=== PATIENT | male | born 1955 | race Caucasian/White ===

== ENCOUNTER 2021-03-02 12:19 | Outpatient (REF) | payer BC, SELFPAY | END 2021-03-02 12:20 | disposition home or self-care (01) | LOC: HO.HMGCLDS 12:19 | PROVIDERS: Visit Provider Internal Medicine | DX: Z20.822 Contact with and (suspected) exposure to COVID-19 (principal) | CPT/HCPCS: C9803; U0003; U0005 ==

== ENCOUNTER 2021-03-16 09:40 | Emergency (ER) | payer BC, SELFPAY | END 2021-03-16 09:57 | disposition left against medical advice (07) | LOC: HO.ED 09:58 | PROVIDERS: Emergency Provider Emergency Medicine; PCP Psychologist Prescribing (Medical) | DX: R68.89 Other general symptoms and signs (principal) ==

== ENCOUNTER 2021-03-19 15:16 | Outpatient (REF) | payer BC, SELFPAY | END 2021-03-19 15:17 | disposition home or self-care (01) | LOC: HO.LNP 15:16 | PROVIDERS: Visit Provider Internal Medicine | DX: Z20.822 Contact with and (suspected) exposure to COVID-19 (principal); J06.9 Acute upper respiratory infection, unspecified | CPT/HCPCS: U0003; U0005 ==

== ENCOUNTER 2021-05-23 09:58 | Outpatient (REF) | payer BC, SELFPAY ==
[2021-05-23 11:38] LABS: Mean Corpuscular HGB Conc 28.3 g/dl (31.0-36.0); Mean Corpuscular Hemoglobin 21.4 pg (27.0-33.0); Mean Corpuscular Volume 75.7 fL (80.0-98.0); Mean Platelet Volume 10.3 fL (9.4-12.4); Platelet Count 437 X10*3/uL (160-400); Red Blood Count 3.04 X10*6/uL (4.60-5.80); Red Cell Distribution Width 15.8 % (11.0-16.0); White Blood Count 8.3 X10*3/uL (4.8-10.8)
[2021-05-23 11:48] LABS: Hemoglobin 6.5 g/dl (14.0-18.0)
[2021-05-23 11:59] LABS: Alanine Aminotransferase 13 U/L (0-40); Alkaline Phosphatase 58 U/L (39-117); Anion Gap 12 (12-20); Aspartate Amino Transferase 11 U/L (5-37); Bilirubin Direct < 0.2 mg/dL (0.0-0.5); Bilirubin Total 0.4 mg/dL (0.0-1.0); Blood Urea Nitrogen 20 mg/dL (9-16); Carbon Dioxide 24 mmol/L (22-29); Chloride 110 mmol/L (96-108); Estimated Glomerular Filt Rate > 60; Glucose Random 85 mg/dL (60-115); Potassium 4.7 mmol/L (3.3-5.1); Sodium 141 mmol/L (135-145); Total Protein 6.6 g/dL (6.5-8.0)
[2021-05-23 12:32] LABS: Erythrocyte Sedimentation Rate 10 MM/HR (0-15)
[2021-05-23 12:36] LABS: Influenza A PCR NEGATIVE (Negative); Influenza B PCR NEGATIVE (Negative); Resp Syncy Virus RNA Qual PCR NEGATIVE (Negative); SARS COV2 PCR INHOUSE POSITIVE (Negative)
== END 2021-05-23 09:59 | disposition home or self-care (01) ==
LOC: HO.HMGCLDS 09:58
PROVIDERS: PCP Internal Medicine; Visit Provider Internal Medicine
DX: Z20.822 Contact with and (suspected) exposure to COVID-19 (principal); R42 Dizziness and giddiness; R43.9 Unspecified disturbances of smell and taste
CPT/HCPCS: 0241U; 36415; 80048; 80076; 85027; 85652

== ENCOUNTER 2021-05-23 14:06 | Emergency (ER) | payer BC, SELFPAY ==
[2021-05-23] VITALS (7 sets, daily range): BP systolic 111–149; BP diastolic 56–90; PULSE 70–83; RESP 18–20; TEMP 36.5–37; O2SAT 97–100; BMI 28.5
--- NOTE | 2021-05-23 18:44 | ED.GENADULT ---
HPI - General Adult General Chief complaint: General Medical Stated complaint: Blood Transfusion COVID + Time Seen by Provider: 05/23/21 14:22 Source: patient Mode of arrival: ambulatory Limitations: no limitations History of Present Illness HPI narrative: Patient comes to the emergency room complaining of lightheadedness. Patient states that it started approximately 3 days ago, noticed that when he stands up he feels lightheaded. Patient has been feeling very fatigued, low energy. Patient had blood test today at his primary care physician's office, patient receive a phone call let him know that his hemoglobin was low and likely would need a blood transfusion. Patient states that approximately 8 years ago he was diagnosed with a GI bleed. Patient states that he needed for units of blood. Patient states that after he was discharged from the hospital he had a colonoscopy, he was told that he had intermittent bleeding but at the time of the colonoscopy did not find much. Patient denies being on blood thinners. Patient states that to his knowledge he has not had black stool or bright red blood per rectum. Of note, patient was told today that he tested positive for COVID-19. Patient states this is the 2nd time that he tests positive for COVID, the 1st time being in February of this year. Patient states that after the previous episode he tested negative for COVID Related Data Home Medications Medication Instructions Recorded Confirmed albuterol sulfate 90 mcg/actuation INHALATION 10/14/20 aerosol inhaler dextroamphetamine-amphetamine 15 1 tab PO BID 10/14/20 mg tablet ergocalciferol (vitamin D2) 1,250 1,250 mcg PO QWEEK 10/14/20 mcg (50,000 unit) capsule fluoxetine 20 mg capsule 20 mg PO DAILY 10/14/20 Previous Rx's Medication Instructions Recorded triamcinolone acetonide 0.025 % 1 appl TOPICAL BID #15 g 03/19/21 topical cream meclizine 25 mg tablet 25 mg PO DAILY #14 tab 05/23/21 Allergies Allergy/AdvReac Type Severity Reaction Status Date / Time No Known Allergies Allergy Verified 05/23/21 08:58 Review of Systems Review of Systems: Constitutional : No Weight loss, No Fever, No Chills, No Night Sweats, complaining of fatigue, weakness ENT/Mouth : No Hearing loss, No Ear Pain, No Nasal Congestion, No Sinus Pain, No Hoarseness, No sore throat, No Rhinorrhea, No Swallowing Difficulty Eyes: No Eye Pain, No Swelling, No Redness, No Foreign Body, No Discharge, No Vision Changes Cardiovascular : No Chest Pain, No SOB, No Dyspnea on Exertion, No Orthopnea, No Edema, No Palpitations Respiratory : No Cough, No Sputum, No Wheezing, No Smoke Exposure, No Dyspnea Gastrointestinal : No Nausea, No Vomiting, No Diarrhea, No Constipation, No abdominal Pain, No Hematochezia, No Melena Genitourinary : no irregular bleeding, No Dysuria, No Urinary Frequency, No Hematuria, No Urinary Incontinence, No Urgency, No Flank Pain, No Urinary Flow Changes, No Hesitancy Musculoskeletal : No joint pain, No Myalgias, No Joint Swelling Skin : No Skin Lesions, No rash Neuro : No Weakness, No Numbness, No Paresthesias, No Loss of Consciousness, complaining of dizziness /lightheaded when standing , No Headache Psych : No Anxiety/Panic, No Depression, No SI/HI/AH/VH, No Social Issues, Heme/Lymph: No Bruising, No Bleeding,No Lymphadenopathy Endocrine : No Polyuria, No Polydipsia, No Temperature Intolerance [facility] Past Medical History Medical History COVID-19 Social History Social History Patient Tobacco Use Status: Never used Tobacco Advance Directives: No Advance Directives Information Provided: Yes Physical Exam Vital Signs: Vital Signs: Last Vital Signs Temp 98.6 F 05/23/21 20:54 Pulse 74 05/23/21 20:54 Resp 20 05/23/21 20:54 BP 129/90 H 05/23/21 20:54 Pulse Ox 100 05/23/21 20:17 BMI result Body Mass Index 28.5 Const: Other: Appearance: Alert. Oriented X3. No acute distress. Eyes: Pupils equal, round and reactive to light. ENT: Pharynx normal. Neck: Normal inspection. Neck supple. No lymph nodes noted. No crepitus CVS: Normal heart rate and rhythm. Pulses normal. Normal S1 and S2 Respiratory: No respiratory distress. Breath sounds normal. No Wheezing. No rales Abdomen: Soft and nontender. No rigidity. No distention. SAHRA shows dark brown stool Skin: Skin warm and dry. Pale Extremities: No lower extremity edema. No lower extremity edema. No Lacerations. No Rash Neuro: Oriented X 3. No motor deficit. No sensory deficit. Moving all extermities. No slurred speech. Course Course Course Narrative: I discussed with the patient that based on his labs and symptoms he would benefit from a blood transfusion. Patient is agreeable. Patient has had blood transfusions in the past and has tolerated blood transfusions well. Consent was signed, in patient's chart. I discussed the patient with Dr. Mcwilliams, patient being admitted. Per patient, last time that he had an occult GI bleed, he required 4 units of packed red blood cells. I spoke with Dr. Mcwilliams to get the patient admitted. However, we consulted Gastroenterology. At this time patient does not have an active GI bleed plus he is COVID positive. Dr. Brown recommends that the patient gets transfused and then sent home, recover from COVID-19, then they can do the colonoscopy. I discussed the above-mentioned with the patient and he agrees with the plan. At this time, patient is senior living through the 1st unit. Patient will need 1 more afterwards. Sign-out given to Dr. Snow Medical Decision Making Lab Data Result diagrams: 05/23/21 19:53 Labs: Lab Results 05/23/21 05/23/21 05/23/21 Range/Units 18:52 19:53 19:53 Hgb 6.3 L* (14.0-18.0) g/dl Hct 21.9 L (42.0-52.0) % Stool Occult Blood POSITIVE (NEGATIVE) Blood Type B Positive Antibody Screen NEGATIVE Crossmatch See Detail Discharge Plan Discharge Clinical Impression: GI bleed, Anemia Patient Disposition: Home, Self-Care Instructions: Anemia (ED), Gastrointestinal Bleeding (ED) Additional Instructions: Please follow-up with your primary care physician tomorrow. When you recover from COVID-19, you will need an endoscopy. Please call your pain management nurse. you have any worsening or new symptoms, please return to the emergency room or call 911 Prescriptions: No Action fluoxetine 20 mg capsule 20 mg PO DAILY RF: 0 dextroamphetamine-amphetamine 15 mg tablet 1 tab PO BID RF: 0 ergocalciferol (vitamin D2) 1,250 mcg (50,000 unit) capsule 1,250 mcg PO QWEEK RF: 0 albuterol sulfate 90 mcg/actuation HFA aerosol inhaler inhalation RF: 0 meclizine 25 mg tablet 25 mg PO DAILY Qty: 14 RF: 0 triamcinolone acetonide 0.025 % cream 1 appl topical BID Qty: 15 RF: 0 Referrals: Reyes Brown MD [Physician] - 2 days
[2021-05-23 18:59] LABS: OBS Int Ctl Valid YES; OBS1 POSITIVE (NEGATIVE)
[2021-05-23 20:00] LABS: Hematocrit 21.9 % (42.0-52.0)
[2021-05-23 20:14] LABS: Hemoglobin 6.3 g/dl (14.0-18.0)
--- NOTE | 2021-05-23 23:29 | PC.NURSE ---
pt a&o, no sob or chest pain, pt tolerated first unit rbc well. Second unit started. Unable to document end vitals due to blood bank having it collected. Was able to call blood bank and get it resolved.
--- NOTE | 2021-05-24 00:48 | PC.NURSE ---
pt pulled Iv line himself and walk out. Unable to complete last set of vitals to complete blood transfusion. Charge nurse and cage supervisor aware. Reviewed unit of blood, second unit of blood was transfused completely.
--- NOTE | 2021-05-24 01:05 | PC.NURSE ---
blood transfusion had just completed. When notified and went to complete tar. pt eloped and pull out iv himself. Notified provider, charge nurse and traffic sign supervisor. Second unit was completed at the time of elopement.
== END 2021-05-24 01:07 | disposition left against medical advice (07) ==
PROVIDERS: Emergency Provider Emergency Medicine; PCP Internal Medicine
DX: D64.9 Anemia, unspecified (principal); K92.2 Gastrointestinal hemorrhage, unspecified; U07.1 COVID-19
CPT/HCPCS: 36415; 51798; 82272; 85014; 85018; 86850; 86900; 86901; 86923; 99284; 99285; P9016

== ENCOUNTER 2021-06-02 14:01 | Outpatient (REF) | payer BC, SELFPAY ==
[2021-06-02 16:36] LABS: Hematocrit 25.3 % (42.0-52.0); Hemoglobin 7.2 g/dl (14.0-18.0); Mean Corpuscular HGB Conc 28.5 g/dl (31.0-36.0); Mean Corpuscular Hemoglobin 22.4 pg (27.0-33.0); Mean Corpuscular Volume 78.6 fL (80.0-98.0); Mean Platelet Volume 10.6 fL (9.4-12.4); Platelet Count 417 X10*3/uL (160-400); Red Blood Count 3.22 X10*6/uL (4.60-5.80); Red Cell Distribution Width 17.7 % (11.0-16.0)
[2021-06-02 16:40] LABS: Appearance Urine CLEAR; Color Urine YELLOW; Glucose Urine UA 500 MG/DL (NEG); Leukocyte Esterase Urine NEG (NEG); Nitrite Urine NEG (NEG); PH 5.5 (5.0-8.0); Specific Gravity - Urine >= 1.030 (1.005-1.025); Urine Blood NEG (NEG); Urine Ketones NEG (NEG); Urine Protein NEG (NEG-TRACE)
[2021-06-02 16:53] LABS: Alanine Aminotransferase 13 U/L (0-40); Albumin Level 3.9 g/dL (3.5-5.0); Alkaline Phosphatase 62 U/L (39-117); Aspartate Amino Transferase 12 U/L (5-37); Bilirubin Direct < 0.2 mg/dL (0.0-0.5); Bilirubin Total 0.3 mg/dL (0.0-1.0); Cholesterol 160 mg/dL; HDL Cholesterol 44 mg/dL; LDL Cholesterol Calculated 91 mg/dl; Total Protein 6.4 g/dL (6.5-8.0); Triglycerides 126 mg/dL
[2021-06-02 18:04] LABS: Erythrocyte Sedimentation Rate 11 MM/HR (0-15)
== END 2021-06-02 14:02 | disposition home or self-care (01) ==
LOC: HO.HMGCLDS 14:01
PROVIDERS: PCP Internal Medicine; Visit Provider Internal Medicine
DX: D64.9 Anemia, unspecified (principal)
CPT/HCPCS: 36415; 80061; 80076; 81003; 85027; 85652

== ENCOUNTER 2021-06-06 13:53 | Outpatient (REF) | payer BC, SELFPAY ==
[2021-06-06 14:48] LABS: MANUAL DIFF FLAG NO
[2021-06-06 15:18] LABS: Basophils Percent Auto 0.2 % (0-2); Eosinophils Percent Auto 0.3 % (0-4); Hematocrit 26.1 % (42.0-52.0); Hemoglobin 7.7 g/dl (14.0-18.0); Imm Gran Abs Auto 0.03 X10*3/uL (0.00-0.03); Imm Gran Pct Auto 0.5 % (0.0-0.4); Lymphocytes Absolute Auto 0.7 X10*3/uL (1.2-4.9); Lymphocytes Percent Auto 10.1 % (20-40); Mean Corpuscular HGB Conc 29.5 g/dl (31.0-36.0); Mean Corpuscular Hemoglobin 22.3 pg (27.0-33.0); Mean Corpuscular Volume 75.7 fL (80.0-98.0); Monocytes Absolute Auto 0.5 X10*3/uL (0.1-1.2); Monocytes Percent Auto 8.1 % (2-11); Neutrophils Absolute Auto 5.3 x10*3/uL (2.0-8.3); Neutrophils Percent Auto 80.8 % (45-73); Platelet Count 487 X10*3/uL (160-400); Red Blood Count 3.45 X10*6/uL (4.60-5.80); Red Cell Distribution Width 17.4 % (11.0-16.0); White Blood Count 6.6 X10*3/uL (4.8-10.8)
[2021-06-06 15:40] LABS: Alanine Aminotransferase 19 U/L (0-40); Albumin Level 4.1 g/dL (3.5-5.0); Alkaline Phosphatase 69 U/L (39-117); Anion Gap 11 (12-20); Aspartate Amino Transferase 15 U/L (5-37); Bilirubin Total 0.4 mg/dL (0.0-1.0); Blood Urea Nitrogen 17 mg/dL (9-16); Carbon Dioxide 26 mmol/L (22-29); Chloride 107 mmol/L (96-108); Estimated Glomerular Filt Rate 58; Glucose Random 116 mg/dL (60-115); Lactate Dehydrogenase 148 U/L (118-273); Potassium 4.5 mmol/L (3.3-5.1); Sodium 139 mmol/L (135-145); Total Protein 6.9 g/dL (6.5-8.0)
[2021-06-06 16:00] LABS: Ferritin 5 ng/mL (20-250)
[2021-06-06 16:13] LABS: Folate > 20.0 ng/mL (> or = 4.0); Vitamin B12 540 pg/mL (200-900)
[2021-06-07 11:31] LABS: Haptoglobin 104 mg/dL (43-212)
== END 2021-06-06 13:54 | disposition home or self-care (01) ==
LOC: HO.LAB 13:53
PROVIDERS: PCP Internal Medicine; Referring Provider Internal Medicine; Visit Provider Internal Medicine Gastroenterology
DX: D64.9 Anemia, unspecified (principal); K75.81 Nonalcoholic steatohepatitis (NASH)
CPT/HCPCS: 36415; 80053; 82607; 82728; 82746; 83010; 83615; 85025; 86850; 86900; 86901

== ENCOUNTER 2021-06-09 10:45 | Day surgery (SDC) | payer BC, SELFPAY ==
[2021-06-09 12:45] VITALS: BMI 28.5
[2021-06-09 12:59] VITALS: BP 139/74; PULSE 72; RESP 16; TEMP 37.1; O2SAT 97
--- NOTE | 2021-06-09 13:04 | MHC.SHP ---
Pre-Procedural Eval Section A Date of Service: 06/09/21 The patient is an INPATIENT: No The History & Physical has been completed within 30 days and I have reviewed it.: Yes Section B Chief Complaint: anemia Allergies: Allergies Allergy/AdvReac Type Severity Reaction Status Date / Time No Known Allergies Allergy Verified 06/09/21 12:41 Plan Diagnosis/Plan: Unchanged I have reviewed the history and physical and performed a pertinent physical examination on my patient. No changes have occurred unless specified.
--- NOTE | 2021-06-09 13:06 | P.BOP_ITS ---
Brief Operative Note Date of Service: 06/09/21 Pre-op diagnosis: anemia Post-op diagnosis: same Procedure: see op note Surgeon: Kim Jade MD Anesthesia: MAC Was an Speech Language Therapist used for this Procedure?: No Estimated blood loss (mL): 0 Condition: stable Disposition: PACU
--- NOTE | 2021-06-09 13:06 | W.PM.OPN ---
Operative Note Operative Note Date of Service: 06/09/21 Narrative: Procedure Description: EGD FLEXIBLE TRANSORAL UPPER GASTROINTESTINAL ENDOSCOPY UPPER ENDOSCOPY Consent: Indications for the procedure and potential complications of bleeding, perforation, reaction to medications and missed diagnosis were discussed with the patient and informed consent was obtained. Instrument: Olympus GIF H 190 J mid size upper endoscope Monitoring: Vital signs and clinical assessment, continuous EKG monitoring, Pulse oximetry, Carbon Dioxide monitoring and blood pressure monitoring were done throughout the procedure. Procedure: The patient was placed in the left lateral decubitis position and pre-procedure medications were administered and a bite block was placed. The endoscope was inserted into the mouth and advanced under direct vision to the third part of duodenum. A careful inspection was made as the upper endoscope was withdrawn including a retroflexed examination of the proximal stomach; Findings and interventions are described below. Findings: Larynx:normal Esophagus: GE junction at 35 cm, diaphragm hiatus at 42 cm, LA Grade A esophagitis noted, with tight appearing GEJ. This was stretched with balloon from 18-19.5 mm with small tear and heme noted. within the hernial sac there were erosions and streaky linear areas of erythema consistent with Kolby erosions. Stomach: Patchy gastric erythema with multiple non bleeding erosions at the distal body and antrum. Biopsies were obtained. Grade 2 flap valve on retroflexed examination of the cardia with 7 cm paraesophageal hernia noted. Duodenum: moderate duodenitis noted, no ulcers seen with distal attachment Intervention: Biopsies as noted above, balloon dilation Impression/Findings: erosive gastritis duodenitis para esophageal hernia esophagitis esophageal stricture kolby erosions, PLAN: Reflux precautions High dose PPI and sucralfate avoid nsaids refer for hernia repair if he agrees still recommend colonoscopy in near future if he agrees
--- NOTE | 2021-06-09 14:20 | HO.ANESPROP2 ---
HPI - Anesthesia Eval Consult details Narrative: 65 M for EGD asthma PMFSH Active Problems Active Problems: All Active Problems (Updated 06/09/21 @ 12:45 by Rehana Montero, RN) Wound dehiscence (Acute) Screening examination for infectious disease (Acute) Vertigo (Acute) Anemia (Acute) Past Medical History Medical History (Updated 06/09/21 @ 12:45 by Rehana Montero RN) ADD (attention deficit disorder) Asthma COVID-19 Depression Iron deficiency anemia Family History Family history of problems with anesthesia: No Surgical History Surgical History (Updated 06/09/21 @ 12:41 by Rehana Montero RN) History of total hip arthroplasty Hx of colonoscopy Hx of esophagogastroduodenoscopy Hx of eye surgery Hx of tonsillectomy History of Problems with Anesthesia: No Social History Social History Patient Tobacco Use Status: Never used Tobacco Meds Allergies Allergy/AdvReac Type Severity Reaction Status Date / Time No Known Allergies Allergy Verified 06/09/21 12:41 Home Medications Medication Instructions Recorded Confirmed Last Taken Type albuterol sulfate 90 mcg/actuation INHALATION 10/14/20 Unknown History aerosol inhaler dextroamphetamine-amphetamine 15 1 tab PO BID 10/14/20 06/09/21 06:00 History mg tablet ergocalciferol (vitamin D2) 1,250 1,250 mcg PO QWEEK 10/14/20 Unknown History mcg (50,000 unit) capsule fluoxetine 20 mg capsule 20 mg PO DAILY 10/14/20 06/09/21 06:00 History Exam Exam Date and Time: June 09, 2021 1420 Height,Weight and Vital Signs: Height 5 ft 11 in Weight 92.986 kg Last Vital Signs Temp 98.7 F 06/09/21 12:59 Pulse 72 06/09/21 12:59 Resp 16 06/09/21 12:59 BP 139/74 06/09/21 12:59 Pulse Ox 97 06/09/21 12:59 Airway Mallampati Class: II TM Dist: >3cm Neck ROM: Full Loose/Missing/Broken Teeth: Yes (Chipped , fillings ) Heart: rrr Lungs: bl breath sounds Assessment and Plan Assessment Anesthesia Assessment: Anesthesia Plan Discussed Final Anesthetic Review Family History of Problems with Anesthesia: No History of Problems with Anesthesia: No NPO: Yes ASA Class: II Final Preanesthetic Review: Anes Risks/Benef Reviewed Patient Risk: Intermediate Procedure Risk: Intermediate Anesthetic Plan Anesthetic Plan: MAC: Disposition: Standard PACU
[2021-06-09 14:55] VITALS: BP 139/84; PULSE 82; RESP 16; TEMP 36.6; O2SAT 98
[2021-06-09 15:10] VITALS: BP 139/89; PULSE 77; RESP 16; TEMP 36.6; O2SAT 96
== END 2021-06-09 15:34 ==
LOC: HO.SSS 10:46
PROVIDERS: PCP Internal Medicine; Visit Provider Internal Medicine Gastroenterology
PROC: 0DJ08ZZ Inspection of Upper Intestinal Tract, Via Natural or Artificial Opening Endoscopic (ICD-10-PCS; CPT 43235; principal; 2021-06-09 14:10)
DX: D64.9 Anemia, unspecified (principal); K22.2 Esophageal obstruction; K29.50 Unspecified chronic gastritis without bleeding; K20.80 Other esophagitis without bleeding; K29.80 Duodenitis without bleeding; K44.9 Diaphragmatic hernia without obstruction or gangrene; K75.81 Nonalcoholic steatohepatitis (NASH); J45.909 Unspecified asthma, uncomplicated; Z96.641 Presence of right artificial hip joint; Z86.16 Personal history of COVID-19
CPT/HCPCS: 43249; 43239; 88305; 88342; C1726

== ENCOUNTER 2021-06-09 10:49 | Outpatient (REF) | payer BC, SELFPAY | END 2021-06-09 10:50 | disposition home or self-care (01) | LOC: HO.MDS 10:49 | PROVIDERS: PCP Internal Medicine; Visit Provider Internal Medicine Gastroenterology | DX: D50.9 Iron deficiency anemia, unspecified (principal) | CPT/HCPCS: 96365; J2916 ==

== ENCOUNTER 2021-06-17 11:42 | Outpatient (REF) | payer BC, SELFPAY | END 2021-06-17 11:43 | disposition home or self-care (01) | LOC: HO.MDS 11:42 | PROVIDERS: PCP Internal Medicine; Visit Provider Internal Medicine Gastroenterology | DX: D50.9 Iron deficiency anemia, unspecified (principal) | CPT/HCPCS: 96365; J2916 ==

== ENCOUNTER 2021-06-28 12:01 | Outpatient (REF) | payer BC, SELFPAY | END 2021-06-28 12:02 | disposition home or self-care (01) | LOC: HO.MDS 12:01 | PROVIDERS: PCP Internal Medicine; Visit Provider Internal Medicine Gastroenterology | DX: D50.9 Iron deficiency anemia, unspecified (principal) | CPT/HCPCS: 96365; J2916 ==

== ENCOUNTER 2021-06-29 08:04 | Outpatient (REF) | payer BC, SELFPAY ==
--- NOTE | ~2021-06-29 | CT_ITS ---
EXAMINATION: CT ABDOMEN AND PELVIS WITH CONTRAST CLINICAL INFORMATION: Anemia. COMPARISON: None TECHNIQUE: Multidetector volumetric images were obtained from the superior aspect of the liver through the pubic symphysis following administration 85 mL of Omnipaque 350 intravenous contrast. Sagittal and coronal reformatted images were obtained on the technologist's workstation. Oral contrast: No This CT examination was performed using dose optimization techniques as appropriate, variously including the following: *Automated exposure control *Adjustment of mA and/or kV according to patient size (this includes techniques or standardized protocols for targeted exams where dose is matched to indication/reason for exam; i.e. extremities or head) *Use of iterative reconstruction technique DLP: 711 mGy-cm FINDINGS: LUNG BASES: Lung bases are expanded and clear. The heart size is normal. There is moderate-sized hiatal hernia. LIVER, GALLBLADDER, AND BILIARY TREE: The liver is normal in size, shape, and attenuation. No focal hepatic lesion or biliary ductal dilatation is present. The gallbladder is unremarkable with no evidence of radiopaque gallstones, gallbladder wall thickening, or obvious pericholecystic inflammatory changes. PANCREAS: Unremarkable. SPLEEN: Unremarkable. ADRENAL GLANDS: Unremarkable. KIDNEYS AND URETERS: The kidneys are normal in size, shape, and attenuation. No hydronephrosis, hydroureter, or calculi seen. No perinephric stranding. BLADDER: Unremarkable. GASTROINTESTINAL TRACT: There is scattered diverticula seen throughout the colon without distention. The small bowel loops are normal caliber. Appendix is normal caliber. No inflammatory process of free fluid. ABDOMINAL WALL: A small umbilical hernia containing fat is noted. LYMPH NODES: Normal. VASCULAR: Unremarkable. PELVIC VISCERA: Unremarkable. OSSEOUS STRUCTURES: There is a total right hip prosthesis. No gross bony abnormality seen except for mild ventral and posterior spondylosis lower dorsal spine. CT/CT abdomen pelvis w con IMPRESSION: No acute intra-abdominal process seen. Moderate size hiatal hernia. Mild constipation. Fleischner guidelines were followed.
[2021-06-29] MEDS: iohexoL 350 MG/ML 100 ML INFUS..BTL IV (08:49)
== END 2021-06-29 08:05 | disposition home or self-care (01) ==
LOC: HO.CT 08:04
PROVIDERS: PCP Internal Medicine; Visit Provider Internal Medicine
DX: D64.9 Anemia, unspecified (principal)
CPT/HCPCS: 74177; Q9967

== ENCOUNTER → 2021-07-08 10:09 | Outpatient (BNVA) | payer BC, SELFPAY | PROVIDERS: PCP Internal Medicine; Visit Provider Surgery | DX: K44.0 Diaphragmatic hernia with obstruction, without gangrene (principal); K21.9 Gastro-esophageal reflux disease without esophagitis; R13.10 Dysphagia, unspecified; D64.9 Anemia, unspecified; Z79.899 Other long term (current) drug therapy | CPT/HCPCS: 99212 ==

== ENCOUNTER 2021-07-16 12:37 | Observation (INO) | payer BC, SELFPAY ==
[2021-07-16] VITALS (11 sets, daily range): BP systolic 132–161; BP diastolic 60–88; PULSE 68–94; RESP 12–19; TEMP 36.7–37.2; O2SAT 97–98; BMI 28.5
--- NOTE | ~2021-07-16 | CT_ITS ---
EXAMINATION: CT ABDOMEN AND PELVIS WITH CONTRAST CLINICAL INFORMATION: GI bleed COMPARISON: Previous CT of the abdomen and pelvis 06/29/2021 TECHNIQUE: Multidetector volumetric images were obtained from the superior aspect of the liver through the pubic symphysis following administration 85 mL of Omnipaque 350 intravenous contrast. Sagittal and coronal reformatted images were obtained on the technologist's workstation. Oral contrast: Yes This CT examination was performed using dose optimization techniques as appropriate, variously including the following: *Automated exposure control *Adjustment of mA and/or kV according to patient size (this includes techniques or standardized protocols for targeted exams where dose is matched to indication/reason for exam; i.e. extremities or head) *Use of iterative reconstruction technique DLP: 727 mGy-cm FINDINGS: LUNG BASES: The visualized lung bases are unremarkable. LIVER, GALLBLADDER, AND BILIARY TREE: The liver is normal in size, shape, and attenuation. No focal hepatic lesion or biliary ductal dilatation is present. The gallbladder is unremarkable with no evidence of radiopaque gallstones, gallbladder wall thickening, or obvious pericholecystic inflammatory changes. PANCREAS: Unremarkable. SPLEEN: Unremarkable. ADRENAL GLANDS: Unremarkable. KIDNEYS AND URETERS: The kidneys are normal in size, shape, and attenuation. No hydronephrosis, hydroureter, or calculi seen. No perinephric stranding. BLADDER: Unremarkable. GASTROINTESTINAL TRACT: There is diverticulosis of the colon. No evidence of diverticulitis is seen. Small and large bowel is otherwise unremarkable. The appendix is unremarkable. There is a large esophageal hernia. The proximal stomach is slightly distended and filled with fluid. ABDOMINAL WALL: There is a small umbilical hernia containing fat. LYMPH NODES: Normal. VASCULAR: Unremarkable. PELVIC VISCERA: Unremarkable. OSSEOUS STRUCTURES: There is a right hip replacement. There are degenerative changes of the spine. CT/CT abdomen pelvis w con IMPRESSION: Large esophageal hernia. The hernia and proximal stomach is slightly distended and fluid-filled. Diverticulosis of the colon. No evidence of diverticulitis. Fleischner guidelines were followed.
--- NOTE | 2021-07-16 12:53 | ED.DIZZY ---
HPI - Dizziness General Chief Complaint: Nausea/Vomiting/Diarrhea Stated Complaint: dizzy weak Time Seen by Provider: 07/16/21 12:48 Source: patient Mode of arrival: ambulatory Limitations: no limitations History of Present Illness HPI Narrative: 65-year-old male past medical history significant for vertigo, iron deficiency anemia, presenting to the emergency department with complaints of weakness, dizziness, nausea and generalized malaise since this morning. He describes his dizziness as disequilibrium. He tells me that he feels weak and just not himself. tells me that he has gotten transfused a lot lately, his last transfusion was about 2 months ago here at [facility]. He tells me he received 2 units. I asked him where the bleeding was coming from and he tells me he thinks it is coming from her hernia, he is followed by Dr.Hassan MOSHER elicited complaint: dizziness Related Data Home Medications Medication Instructions Recorded Confirmed albuterol sulfate 90 mcg/actuation INHALATION 10/14/20 07/08/21 aerosol inhaler dextroamphetamine-amphetamine 15 1 tab PO BID 10/14/20 07/08/21 mg tablet ergocalciferol (vitamin D2) 1,250 1,250 mcg PO QWEEK 10/14/20 07/08/21 mcg (50,000 unit) capsule fluoxetine 20 mg capsule 20 mg PO DAILY 10/14/20 07/08/21 tamsulosin 0.4 mg capsule 1 cap PO DAILY 06/30/21 07/08/21 Previous Rx's Medication Instructions Recorded triamcinolone acetonide 0.025 % 1 appl TOPICAL BID #15 g 03/19/21 topical cream pantoprazole 40 mg tablet,delayed 40 mg PO DAILY #60 tab 06/09/21 release sucralfate 100 mg/mL oral 10 ml PO BID 30 Days #600 ml 06/09/21 suspension (Carafate) Allergies Allergy/AdvReac Type Severity Reaction Status Date / Time No Known Allergies Allergy Verified 07/08/21 10:37 Review of Systems Review of Systems: Constitutional : No Weight loss, No Fever, No Chills, + Fatigue, + Malaise ENT/Mouth : No sore throat, No Rhinorrhea Eyes: No Eye Pain, No Swelling, No Redness Cardiovascular : No Chest Pain, No SOB, No Dyspnea on Exertion, No Orthopnea, No Edema, No Palpitations Respiratory : No Cough, No Sputum, No Wheezing Gastrointestinal : No Nausea, No Vomiting, No Diarrhea, No Constipation, No abdominal Pain, No Hematochezia, No Melena Genitourinary : No Dysuria, No Urinary Frequency, No Hematuria, Musculoskeletal : No joint pain, No Myalgias, No Joint Swelling Skin : No Skin Lesions, No rash Neuro : No Weakness, No Numbness, + Dizziness, No Headache Psych : No Anxiety/Panic, No Depression Heme/Lymph: No Bruising, No Bleeding,No Lymphadenopathy Endocrine : No Polyuria, No Polydipsia All other systems reviewed and are negative Yes all other systems are reviewed and are negative [facility] Past Medical History Attestation statement: The following information was validated with the patient. Source: old records reviewed and nursing notes reviewed Medical History ADD (attention deficit disorder) Anemia Asthma COVID-19 Depression Esophageal stricture Iron deficiency anemia Paraesophageal hernia Surgical History History of total hip arthroplasty Hx of colonoscopy Hx of esophagogastroduodenoscopy Hx of eye surgery Hx of tonsillectomy Social History Social History Patient Tobacco Use Status: Never used Tobacco Advance Directives: No Advance Directives Information Provided: Yes Physical Exam Vital Signs: Vital Signs: Last Vital Signs Temp 98.8 F 07/16/21 15:38 Pulse 86 07/16/21 15:38 Resp 15 07/16/21 15:38 BP 143/75 H 07/16/21 15:38 Pulse Ox 97 07/16/21 15:15 BMI result Body Mass Index 28.5 VSS Appearance: Alert.? Oriented X3.? No acute distress.?Patient appears pale. Head: Normocephalic, atraumatic, no step-offs or deformities Eyes: Pupils equal, round and reactive to light.? ENT: Pharynx normal.? Neck: Normal inspection.? Neck supple.? CVS: Normal heart rate and rhythm.? Pulses normal.? Respiratory: No respiratory distress.? Breath sounds normal.? Abdomen: Soft and nontender.? Skin: Skin warm and dry.? + pallor throughout, with pale mucous membranes. Normal skin turgor.? Extremities: No lower extremity edema.? No calf ttp. 5/5 strength to bilateral upper and lower extremities Back: No midline tenderness, no C-spine tenderness, full range of motion, no CVA tenderness bilaterally Neuro: Oriented X 3.? No motor deficit.? No sensory deficit. Course Reevaluation(s) Reevaluation #1: Patient's hemoglobin is noted to be 6.9, hematocrit 24.9. 1 unit of packed red blood cells will be ordered at this time. Consent was obtained from the patient. Patient's platelets are also noted to be elevated however this appears to be patient's baseline. No acute electrolyte abnormalities. Patient is COVID negative.Type and screen pending. OBS pending. Time: 13:32 Reevaluation #2: Obtained written consent for blood transfusion. Signed consent in patient's chart. Time: 14:21 Reevaluation #3: Patient is noted to have a large esophageal hernia, proximal stomach and her knee appear to be slightly distended and fluid-filled on CT scan. I will discuss this case with hospitalist for admission. Time: 15:47 Additional Reevaluation(s): Dr. Richey will admit patient. MDM - Dizziness MDM Narrative Medical decision making narrative: 1300 65 yo m pmhx anemia, gi bleed requiring multiple transfusions presents to ed w/ weakness and dizziness since this AM. Denies hematemesis and blood per rectum. Physical examination significant for pallor throughout with pale mucous membranes. Capillary refill within normal limits. Lungs clear, regular rate and rhythm, abdomen soft nontender nondistended. Neuro nonfocal. Upon chart review it appears as though Dr. Jade did an EGD on this patient, impressions were erosive gastritis duodenitis, paraesophageal hernia, esophagitis, esophageal stricture, Kolby erosions. Patient was discharged on high-dose PPIs and sucralfate. He was advised to avoid NSAIDS. He was referred for a hernia repair. Plan- labs, abdomen and pelvis ct. Medical Records Attestation: I reviewed the patient's medical records. Lab Data Attestation: I reviewed the patient's lab results. Result diagrams: 07/16/21 13:06 07/16/21 13:06 Labs: Lab Results 07/16/21 07/16/21 07/16/21 Range/Units 13:06 13:06 13:06 WBC 6.3 (4.8-10.8) X10*3/uL RBC 3.47 L (4.60-5.80) X10*6/uL Hgb 6.9 L* (14.0-18.0) g/dl Hct 24.9 L (42.0-52.0) % MCV 71.8 L (80.0-98.0) fL MCH 19.9 L (27.0-33.0) pg MCHC 27.7 L (31.0-36.0) g/dl RDW 19.9 H (11.0-16.0) % Plt Count 444 H (160-400) X10*3/uL MPV 8.8 L (9.4-12.4) fL Immature Gran % (Auto) 0.3 (0.0-0.4) % Neut % (Auto) 82.4 H (45-73) % Lymph % (Auto) 8.4 L (20-40) % [place] % (Auto) 8.1 (2-11) % Eos % (Auto) 0.5 (0-4) % Baso % (Auto) 0.3 (0-2) % Lymph # (Auto) 0.5 L (1.2-4.9) X10*3/uL [place] # (Auto) 0.5 (0.1-1.2) X10*3/uL Eos # (Auto) 0.0 (0.0-0.4) X10*3/uL Baso # (Auto) 0.0 (0.0-0.2) X10*3/uL Abs Immat Gran (auto) 0.02 (0.00-0.03) X10*3/uL Absolute Neuts (auto) 5.2 (2.0-8.3) x10*3/uL Absolute Nucleated RBC 0.000 (0.0-0.012) X10*3/uL Nucleated RBC % (auto) 0.0 (0.0-0.2) /100WBC Sodium 141 (135-145) mmol/L Potassium 4.1 (3.3-5.1) mmol/L Chloride 108 (96-108) mmol/L Carbon Dioxide 27 (22-29) mmol/L Anion Gap 10 L (12-20) BUN 18 H (9-16) mg/dL Creatinine 1.06 (0.5-1.4) mg/dL Estim Creat Clear Calc 83.1 Estimated GFR > 60 Random Glucose 146 H (60-115) mg/dL Calcium 8.9 (8.4-10.2) mg/dL Magnesium 1.9 (1.6-2.6) mg/dL Total Bilirubin 0.3 (0.0-1.0) mg/dL AST 9 (5-37) U/L ALT 10 (0-40) U/L Alkaline Phosphatase 57 (39-117) U/L Total Protein 6.4 L (6.5-8.0) g/dL Albumin 3.9 (3.5-5.0) g/dL Urine Color Urine Appearance Urine pH (5.0-8.0) Ur Specific [place] (1.005-1.025) Urine Protein (NEG-TRACE) MG/DL Urine Glucose (UA) (NEG) MG/DL Urine Ketones (NEG) MG/DL Urine Blood (NEG) Urine Nitrite (NEG) Ur Leukocyte Esterase (NEG) Stool Occult Blood (NEGATIVE) Urine Opiates Screen (Not Detect) Urine Fentanyl Screen (Not Detect) Ur Barbiturates Screen (Not Detect) Ur Phencyclidine Scrn (Not Detect) Ur Amphetamines Screen (Not Detect) U Benzodiazepines Scrn (Not Detect) Urine Cocaine Screen (Not Detect) U Marijuana (THC) Screen (Not Detect) COVID-19 (SRAVAN) Negative (Negative) COVID-19 Clin Com See Note Blood Type Antibody Screen Crossmatch 07/16/21 07/16/21 07/16/21 Range/Units 13:21 13:37 14:55 WBC (4.8-10.8) X10*3/uL RBC (4.60-5.80) X10*6/uL Hgb (14.0-18.0) g/dl Hct (42.0-52.0) % MCV (80.0-98.0) fL MCH (27.0-33.0) pg MCHC (31.0-36.0) g/dl RDW (11.0-16.0) % Plt Count (160-400) X10*3/uL MPV (9.4-12.4) fL Immature Gran % (Auto) (0.0-0.4) % Neut % (Auto) (45-73) % Lymph % (Auto) (20-40) % [place] % (Auto) (2-11) % Eos % (Auto) (0-4) % Baso % (Auto) (0-2) % Lymph # (Auto) (1.2-4.9) X10*3/uL [place] # (Auto) (0.1-1.2) X10*3/uL Eos # (Auto) (0.0-0.4) X10*3/uL Baso # (Auto) (0.0-0.2) X10*3/uL Abs Immat Gran (auto) (0.00-0.03) X10*3/uL Absolute Neuts (auto) (2.0-8.3) x10*3/uL Absolute Nucleated RBC (0.0-0.012) X10*3/uL Nucleated RBC % (auto) (0.0-0.2) /100WBC Sodium (135-145) mmol/L Potassium (3.3-5.1) mmol/L Chloride (96-108) mmol/L Carbon Dioxide (22-29) mmol/L Anion Gap (12-20) BUN (9-16) mg/dL Creatinine (0.5-1.4) mg/dL Estim Creat Clear Calc Estimated GFR Random Glucose (60-115) mg/dL Calcium (8.4-10.2) mg/dL Magnesium (1.6-2.6) mg/dL Total Bilirubin (0.0-1.0) mg/dL AST (5-37) U/L ALT (0-40) U/L Alkaline Phosphatase (39-117) U/L Total Protein (6.5-8.0) g/dL Albumin (3.5-5.0) g/dL Urine Color YELLOW Urine Appearance HAZY Urine pH 6.0 (5.0-8.0) Ur Specific [place] 1.020 (1.005-1.025) Urine Protein NEG (NEG-TRACE) MG/DL Urine Glucose (UA) 250 H (NEG) MG/DL Urine Ketones NEG (NEG) MG/DL Urine Blood NEG (NEG) Urine Nitrite NEG (NEG) Ur Leukocyte Esterase NEG (NEG) Stool Occult Blood POSITIVE (NEGATIVE) Urine Opiates Screen (Not Detect) Urine Fentanyl Screen (Not Detect) Ur Barbiturates Screen (Not Detect) Ur Phencyclidine Scrn (Not Detect) Ur Amphetamines Screen (Not Detect) U Benzodiazepines Scrn (Not Detect) Urine Cocaine Screen (Not Detect) U Marijuana (THC) Screen (Not Detect) COVID-19 (SRAVAN) (Negative) COVID-19 Clin Com Blood Type B Positive Antibody Screen NEGATIVE Crossmatch See Detail 07/16/21 Range/Units 14:55 WBC (4.8-10.8) X10*3/uL RBC (4.60-5.80) X10*6/uL Hgb (14.0-18.0) g/dl Hct (42.0-52.0) % MCV (80.0-98.0) fL MCH (27.0-33.0) pg MCHC (31.0-36.0) g/dl RDW (11.0-16.0) % Plt Count (160-400) X10*3/uL MPV (9.4-12.4) fL Immature Gran % (Auto) (0.0-0.4) % Neut % (Auto) (45-73) % Lymph % (Auto) (20-40) % [place] % (Auto) (2-11) % Eos % (Auto) (0-4) % Baso % (Auto) (0-2) % Lymph # (Auto) (1.2-4.9) X10*3/uL [place] # (Auto) (0.1-1.2) X10*3/uL Eos # (Auto) (0.0-0.4) X10*3/uL Baso # (Auto) (0.0-0.2) X10*3/uL Abs Immat Gran (auto) (0.00-0.03) X10*3/uL Absolute Neuts (auto) (2.0-8.3) x10*3/uL Absolute Nucleated RBC (0.0-0.012) X10*3/uL Nucleated RBC % (auto) (0.0-0.2) /100WBC Sodium (135-145) mmol/L Potassium (3.3-5.1) mmol/L Chloride (96-108) mmol/L Carbon Dioxide (22-29) mmol/L Anion Gap (12-20) BUN (9-16) mg/dL Creatinine (0.5-1.4) mg/dL Estim Creat Clear Calc Estimated GFR Random Glucose (60-115) mg/dL Calcium (8.4-10.2) mg/dL Magnesium (1.6-2.6) mg/dL Total Bilirubin (0.0-1.0) mg/dL AST (5-37) U/L ALT (0-40) U/L Alkaline Phosphatase (39-117) U/L Total Protein (6.5-8.0) g/dL Albumin (3.5-5.0) g/dL Urine Color Urine Appearance Urine pH (5.0-8.0) Ur Specific [place] (1.005-1.025) Urine Protein (NEG-TRACE) MG/DL Urine Glucose (UA) (NEG) MG/DL Urine Ketones (NEG) MG/DL Urine Blood (NEG) Urine Nitrite (NEG) Ur Leukocyte Esterase (NEG) Stool Occult Blood (NEGATIVE) Urine Opiates Screen Not Detected (Not Detect) Urine Fentanyl Screen Not Detected (Not Detect) Ur Barbiturates Screen Not Detected (Not Detect) Ur Phencyclidine Scrn Not Detected (Not Detect) Ur Amphetamines Screen POSITIVE H (Not Detect) U Benzodiazepines Scrn Not Detected (Not Detect) Urine Cocaine Screen Not Detected (Not Detect) U Marijuana (THC) Screen Not Detected (Not Detect) COVID-19 (SRAVAN) (Negative) COVID-19 Clin Com Blood Type Antibody Screen Crossmatch Critical Care Time Critical Care Time Critical Care Time: Yes Total Critical Care Time: 35 Attestation: Obtaining history, physical exam, reviewing patient's labs and imaging. Reviewing previous visits, and imaging. Speaking to my attending. Starting blood transfusion. Discharge Plan Discharge Clinical Impression: GI bleed, Esophageal hernia, Anemia Patient Disposition: Admitted As Inpatient Prescriptions: No Action tamsulosin 0.4 mg capsule 1 cap PO DAILY 0RF pantoprazole 40 mg tablet,delayed release (DR/EC) 40 mg PO DAILY Qty: 60 2RF sucralfate [Carafate] 100 mg/mL suspension 10 ml PO BID 30 Days Qty: 600 0RF Rx Instructions: Do not take at same time as pantoprazole, wait at least 1 hour fluoxetine 20 mg capsule 20 mg PO DAILY 0RF dextroamphetamine-amphetamine 15 mg tablet 1 tab PO BID 0RF ergocalciferol (vitamin D2) 1,250 mcg (50,000 unit) capsule 1,250 mcg PO QWEEK 0RF albuterol sulfate 90 mcg/actuation HFA aerosol inhaler inhalation 0RF triamcinolone acetonide 0.025 % cream 1 appl topical BID Qty: 15 0RF
[2021-07-16] MEDS: 0.9 % Sodium Chloride 1,000 ML 999 ML IV (13:08)
[2021-07-16 13:09] LABS: MANUAL DIFF FLAG NO
[2021-07-16 13:15] LABS: Basophils Percent Auto 0.3 % (0-2); Eosinophils Percent Auto 0.5 % (0-4); Hematocrit 24.9 % (42.0-52.0); Imm Gran Abs Auto 0.02 X10*3/uL (0.00-0.03); Imm Gran Pct Auto 0.3 % (0.0-0.4); Lymphocytes Absolute Auto 0.5 X10*3/uL (1.2-4.9); Lymphocytes Percent Auto 8.4 % (20-40); Mean Corpuscular HGB Conc 27.7 g/dl (31.0-36.0); Mean Corpuscular Hemoglobin 19.9 pg (27.0-33.0); Mean Corpuscular Volume 71.8 fL (80.0-98.0); Mean Platelet Volume 8.8 fL (9.4-12.4); Monocytes Absolute Auto 0.5 X10*3/uL (0.1-1.2); Monocytes Percent Auto 8.1 % (2-11); Neutrophils Absolute Auto 5.2 x10*3/uL (2.0-8.3); Neutrophils Percent Auto 82.4 % (45-73); Platelet Count 444 X10*3/uL (160-400); Red Blood Count 3.47 X10*6/uL (4.60-5.80); Red Cell Distribution Width 19.9 % (11.0-16.0); White Blood Count 6.3 X10*3/uL (4.8-10.8)
[2021-07-16 13:27] LABS: Alanine Aminotransferase 10 U/L (0-40); Albumin Level 3.9 g/dL (3.5-5.0); Alkaline Phosphatase 57 U/L (39-117); Anion Gap 10 (12-20); Aspartate Amino Transferase 9 U/L (5-37); Bilirubin Total 0.3 mg/dL (0.0-1.0); Blood Urea Nitrogen 18 mg/dL (9-16); Calcium 8.9 mg/dL (8.4-10.2); Carbon Dioxide 27 mmol/L (22-29); Chloride 108 mmol/L (96-108); Creatinine Clr Calc Pharmacy 83.1; Estimated Glomerular Filt Rate > 60; Glucose Random 146 mg/dL (60-115); Magnesium 1.9 mg/dL (1.6-2.6); Potassium 4.1 mmol/L (3.3-5.1); Sodium 141 mmol/L (135-145); Total Protein 6.4 g/dL (6.5-8.0)
[2021-07-16 13:28] LABS: Hemoglobin 6.9 g/dl (14.0-18.0)
[2021-07-16 13:30] LABS: COVID-19 Test Negative (Negative)
[2021-07-16 13:45] LABS: OBS Int Ctl Valid YES; OBS1 POSITIVE (NEGATIVE)
[2021-07-16 15:03] LABS: Appearance Urine HAZY; Color Urine YELLOW; Glucose Urine UA 250 MG/DL (NEG); Leukocyte Esterase Urine NEG (NEG); Nitrite Urine NEG (NEG); Urine Blood NEG (NEG); Urine Ketones NEG (NEG); Urine Protein NEG (NEG-TRACE)
[2021-07-16 15:24] LABS: Amphetamine Screen Urine POSITIVE (Not Detect); Barbiturates, Urine Not Detected (Not Detect); Benzodiazepines Screen Urine Not Detected (Not Detect); Cannabinoid Screen Urine Not Detected (Not Detect); Cocaine Screen Urine Not Detected (Not Detect); Fentanyl, urine Not Detected (Not Detect); Opiate Screen Urine Not Detected (Not Detect); Phencyclidine Screen Urine Not Detected (Not Detect)
--- NOTE | 2021-07-16 16:33 | PM.IMHP ---
History of Present Illness Date of Service: 07/16/21 Chief Complaint: Weakness 65-year-old male presented with 2 days of weakness. Patient has known incarcerated paraesophageal hernia complicated by chronic upper GI bleed with Kol[place] ulcers. He is seen thoracic recently and has a surgery scheduled in several weeks. He is currently on a PPI, but is stop taking his iron. He has been feeling weak recently, similar to previous times when his hemoglobin was as low 6.3 and requiring transfusion. Patient denies any active bleed, does not see any blood in stool, has not had any hematemesis. Patient is not on any blood thinners. In ED hemoglobin 6.9. 1 unit PRBC was ordered. Review of Systems Review of Systems: Constitutional: Denies fever, denies Chills Eyes: denies blurry vision ENT: denies sore throat CVS: denies chest pain Respiratory: Denies dyspnea GI: no abdominal pain : denies dysuria MSK: denies neck pain Skin: denies rash Neuro: denies specific motor weakness Psych: denies suicidal ideation Endocrine: denies heat/cold intolerance Hematologic: denies easy bleeding Allergy: denies hives PMFSH Medical History ADD (attention deficit disorder) Anemia Asthma COVID-19 Depression Esophageal stricture Iron deficiency anemia Paraesophageal hernia Family History (Updated 07/16/21 @ 16:35 by Miguel Wylie MD) Father COPD (chronic obstructive pulmonary disease) Surgical History History of total hip arthroplasty Hx of colonoscopy Hx of esophagogastroduodenoscopy Hx of eye surgery Hx of tonsillectomy Social History (Updated 07/16/21 @ 16:36 by Miguel Wylie MD) Alcohol intake: current Patient Tobacco Use Status: Never used Tobacco Use of substances other than those prescribed or required for medical reasons: No Advance Directives: No Advance Directives Information Provided: Yes Meds Allergies Allergy/AdvReac Type Severity Reaction Status Date / Time No Known Allergies Allergy Verified 07/08/21 10:37 Active Medications: Current Medications Acetaminophen (Acetaminophen 325 Mg Tablet) 650 mg PO Q6H PRN PRN Reason: mild pain Amphetamine/Dextroamphetamine (Dextroamphetamine/Amphetamine Xr 5 Mg Cap.Er.24h) 15 mg PO BID CHRISTI Fluoxetine HCl (Fluoxetine Hcl 20 Mg Capsule) 20 mg PO DAILY [facility] Olanzapine (Olanzapine 2.5 Mg Tablet) 2.5 mg PO DAILY [facility] Pantoprazole Sodium (Pantoprazole Sodium 40 Mg/10 Ml Vial) 40 mg IVPUSH BID@0630,1630 [facility] Pharmacy Consult (Consult Rx Perform Med Rec) 1 each MISCELLANE ONCE PRN PRN Reason: Consult order Sodium Chloride (0.9 % Sodium Chloride Flush 3 Ml Syringe) 3 ml IVFLUSH QSHIFT [facility] Sucralfate (Sucralfate Oral Suspension 1 Gm/10 Ml Oral.Susp) 1 gm PO QIDACHS [facility] Tamsulosin HCl (Tamsulosin Hcl 0.4 Mg Capsule) 0.4 mg PO DAILY [facility] Home Medications Medication Instructions Recorded Confirmed Last Taken Type albuterol sulfate 90 mcg/actuation INHALATION 10/14/20 07/08/21 Unknown History aerosol inhaler dextroamphetamine-amphetamine 15 1 tab PO BID 10/14/20 07/08/21 06/09/21 06:00 History mg tablet ergocalciferol (vitamin D2) 1,250 1,250 mcg PO QWEEK 10/14/20 07/08/21 Unknown History mcg (50,000 unit) capsule fluoxetine 20 mg capsule 20 mg PO BID 10/14/20 07/08/21 06/09/21 06:00 History tamsulosin 0.4 mg capsule 1 cap PO DAILY 06/30/21 07/08/21 Unknown History dutasteride 0.5 mg capsule 1 cap PO DAILY 07/16/21 Unknown History olanzapine 2.5 mg tablet 1 tab PO BEDTIME 07/16/21 Unknown History Physical Exam Vital Signs and Narrative: Vital Signs: Last Vital Signs Temp 98.4 F 07/16/21 16:23 Pulse 86 07/16/21 16:23 Resp 12 07/16/21 16:23 BP 140/65 H 07/16/21 16:23 Pulse Ox 98 07/16/21 16:01 BMI result Body Mass Index 28.5 General: no acute distress, pale HEENT: atraumatic Neck: normal to visual inspection CVS: S1, S2, RRR Resp: CTA bilateral Chest: non tender GI: soft, non tender, non distended : no CVA tenderness Skin: no rashes Extremities: no edema Neuro: Oriented X3, grossly intact Psych: cooperative Results Labs CBC and Chem 7: 07/16/21 13:06 07/16/21 13:06 Labs: Laboratory Results - last 24 hr 07/16/21 07/16/21 07/16/21 13:06 13:06 13:06 MCV 71.8 L MCH 19.9 L MCHC 27.7 L RDW 19.9 H Plt Count 444 H MPV 8.8 L Immature Gran % (Auto) 0.3 Neut % (Auto) 82.4 H Lymph % (Auto) 8.4 L [place] % (Auto) 8.1 Eos % (Auto) 0.5 Baso % (Auto) 0.3 Lymph # (Auto) 0.5 L [place] # (Auto) 0.5 Eos # (Auto) 0.0 Baso # (Auto) 0.0 Abs Immat Gran (auto) 0.02 Absolute Neuts (auto) 5.2 Absolute Nucleated RBC 0.000 Nucleated RBC % (auto) 0.0 Anion Gap 10 L Estim Creat Clear Calc 83.1 Estimated GFR > 60 Random Glucose 146 H Calcium 8.9 Magnesium 1.9 Total Bilirubin 0.3 AST 9 ALT 10 Alkaline Phosphatase 57 Total Protein 6.4 L Albumin 3.9 Urine Color Urine Appearance Urine pH Ur Specific [place] Urine Protein Urine Glucose (UA) Urine Ketones Urine Blood Urine Nitrite Ur Leukocyte Esterase Stool Occult Blood Urine Opiates Screen Urine Fentanyl Screen Ur Barbiturates Screen Ur Phencyclidine Scrn Ur Amphetamines Screen U Benzodiazepines Scrn Urine Cocaine Screen U Marijuana (THC) Screen COVID-19 (SRAVAN) Negative COVID-19 Clin Com See Note Blood Type Antibody Screen Crossmatch 07/16/21 07/16/21 07/16/21 13:21 13:37 14:55 MCV MCH MCHC RDW Plt Count MPV Immature Gran % (Auto) Neut % (Auto) Lymph % (Auto) [place] % (Auto) Eos % (Auto) Baso % (Auto) Lymph # (Auto) [place] # (Auto) Eos # (Auto) Baso # (Auto) Abs Immat Gran (auto) Absolute Neuts (auto) Absolute Nucleated RBC Nucleated RBC % (auto) Anion Gap Estim Creat Clear Calc Estimated GFR Random Glucose Calcium Magnesium Total Bilirubin AST ALT Alkaline Phosphatase Total Protein Albumin Urine Color YELLOW Urine Appearance HAZY Urine pH 6.0 Ur Specific [place] 1.020 Urine Protein NEG Urine Glucose (UA) 250 H Urine Ketones NEG Urine Blood NEG Urine Nitrite NEG Ur Leukocyte Esterase NEG Stool Occult Blood POSITIVE Urine Opiates Screen Urine Fentanyl Screen Ur Barbiturates Screen Ur Phencyclidine Scrn Ur Amphetamines Screen U Benzodiazepines Scrn Urine Cocaine Screen U Marijuana (THC) Screen COVID-19 (SRAVAN) COVID-19 Clin Com Blood Type B Positive Antibody Screen NEGATIVE Crossmatch See Detail 07/16/21 14:55 MCV MCH MCHC RDW Plt Count MPV Immature Gran % (Auto) Neut % (Auto) Lymph % (Auto) [place] % (Auto) Eos % (Auto) Baso % (Auto) Lymph # (Auto) [place] # (Auto) Eos # (Auto) Baso # (Auto) Abs Immat Gran (auto) Absolute Neuts (auto) Absolute Nucleated RBC Nucleated RBC % (auto) Anion Gap Estim Creat Clear Calc Estimated GFR Random Glucose Calcium Magnesium Total Bilirubin AST ALT Alkaline Phosphatase Total Protein Albumin Urine Color Urine Appearance Urine pH Ur Specific [place] Urine Protein Urine Glucose (UA) Urine Ketones Urine Blood Urine Nitrite Ur Leukocyte Esterase Stool Occult Blood Urine Opiates Screen Not Detected Urine Fentanyl Screen Not Detected Ur Barbiturates Screen Not Detected Ur Phencyclidine Scrn Not Detected Ur Amphetamines Screen POSITIVE H U Benzodiazepines Scrn Not Detected Urine Cocaine Screen Not Detected U Marijuana (THC) Screen Not Detected COVID-19 (SRAVAN) COVID-19 Clin Com Blood Type Antibody Screen Crossmatch Imaging Radiologist's Impressions: Impressions Abdomen/Pelvis CT 07/16/21 15:15 IMPRESSION: Large esophageal hernia. The hernia and proximal stomach is slightly distended and fluid-filled. Diverticulosis of the colon. No evidence of diverticulitis. Fleischner guidelines were followed. Assessment and Plan (1) GI bleed: Status: Acute Plan 65-year-old male presented with weakness Weakness due to symptomatic chronic blood loss anemia from upper GI bleed from paraesophageal hernia Transfuse 1 unit Monitor H&H PPI, Carafate Outpatient follow-up with thoracic BPH Flomax ADHD Adderall Mood disorder Fluoxetine and olanzapine DVT prophylaxis -mechanical due to GI bleed Quality Stroke Does the patient have a stroke diagnosis?: No VTE Prior VTE?: No VTE Risk Level:: Medical - moderate - high VTE Device Contraindication: N/A - Device Ordered VTE Drug Contraindication: Treatment Not Indicated
[2021-07-16] MEDS: Acetaminophen 325 MG TABLET 650 MG PO (16:43)
--- NOTE | 2021-07-16 16:52 | PHA.MEDREC ---
Pharmacy Consult ? Medication Reconciliation Pharmacy has completed the medication reconciliation.
[2021-07-16] MEDS: Pantoprazole Sodium 40 MG/10 ML VIAL IVPUSH (16:58)
[2021-07-16] MEDS: Sucralfate Oral Suspension 1 GM/10 ML ORAL.SUSP PO ×2 (16:58→20:48)
--- NOTE | 2021-07-16 17:32 | PC.NURSE ---
plan for pt to be admit to the hospital, he is aware
--- NOTE | 2021-07-16 18:28 | PM.DS ---
DS: Providers Provider Date of Service: 07/16/21 Date of admission: 07/16/21 16:22 Primary care physician: Darien Salazar MD DS: Diagnosis Discharge Diagnosis (1) GI bleed: Status: Acute DS: Summary Hospital Course Hospital Course: patient was admitted for chronic blood loss anemia due to upper gi bleed from nicolas lesions in paraesophogeal hernia, complicated by weakness. he was given 1 unit prbc. his hgb on admission was 6.9. plan was to monitor overnight to rule out active bleeding. however, patient was not interested in staying in hospital. he will be discharged home. he should continue ppi, restart iron supplement, repeat hgb on sunday, and follow up with thoracic surgery for hernia repair. Time Spent with Patient Time attestation: Total time spent providing and/or coordinating discharge services: Discharge coordination time: Greater than 30 minutes Quality: Stroke Does the patient have a stroke diagnosis?: No Physical Exam Vital Signs: Vital Signs: Last Vital Signs Temp 98.4 F 07/16/21 16:23 Pulse 84 07/16/21 17:51 Resp 17 07/16/21 16:59 BP 148/87 H 07/16/21 17:51 Pulse Ox 98 07/16/21 16:59 BMI result Body Mass Index 28.5 General: AO X 3, no acute distress Resp: CTA bilateral, no accessory muscles used CVS: S1,S2,RRR GI: soft, non tender, non distended Neuro: motor grossly intact, alert Psych: appropriate affect, appropriate insight DS: Data Data Completed and Pending Labs on day of discharge: Laboratory Results - last 24 hr 07/16/21 07/16/21 07/16/21 13:06 13:06 13:06 WBC 6.3 RBC 3.47 L Hgb 6.9 L* Hct 24.9 L MCV 71.8 L MCH 19.9 L MCHC 27.7 L RDW 19.9 H Plt Count 444 H MPV 8.8 L Immature Gran % (Auto) 0.3 Neut % (Auto) 82.4 H Lymph % (Auto) 8.4 L Sullivan % (Auto) 8.1 Eos % (Auto) 0.5 Baso % (Auto) 0.3 Lymph # (Auto) 0.5 L Sullivan # (Auto) 0.5 Eos # (Auto) 0.0 Baso # (Auto) 0.0 Abs Immat Gran (auto) 0.02 Absolute Neuts (auto) 5.2 Absolute Nucleated RBC 0.000 Nucleated RBC % (auto) 0.0 Sodium 141 Potassium 4.1 Chloride 108 Carbon Dioxide 27 Anion Gap 10 L BUN 18 H Creatinine 1.06 Estim Creat Clear Calc 83.1 Estimated GFR > 60 Random Glucose 146 H Calcium 8.9 Magnesium 1.9 Total Bilirubin 0.3 AST 9 ALT 10 Alkaline Phosphatase 57 Total Protein 6.4 L Albumin 3.9 Urine Color Urine Appearance Urine pH Ur Specific [place] Urine Protein Urine Glucose (UA) Urine Ketones Urine Blood Urine Nitrite Ur Leukocyte Esterase Stool Occult Blood Urine Opiates Screen Urine Fentanyl Screen Ur Barbiturates Screen Ur Phencyclidine Scrn Ur Amphetamines Screen U Benzodiazepines Scrn Urine Cocaine Screen U Marijuana (THC) Screen COVID-19 (SRAVAN) Negative COVID-19 Clin Com See Note Blood Type Antibody Screen Crossmatch 07/16/21 07/16/21 07/16/21 13:21 13:37 14:55 WBC RBC Hgb Hct MCV MCH MCHC RDW Plt Count MPV Immature Gran % (Auto) Neut % (Auto) Lymph % (Auto) Sullivan % (Auto) Eos % (Auto) Baso % (Auto) Lymph # (Auto) [place] # (Auto) Eos # (Auto) Baso # (Auto) Abs Immat Gran (auto) Absolute Neuts (auto) Absolute Nucleated RBC Nucleated RBC % (auto) Sodium Potassium Chloride Carbon Dioxide Anion Gap BUN Creatinine Estim Creat Clear Calc Estimated GFR Random Glucose Calcium Magnesium Total Bilirubin AST ALT Alkaline Phosphatase Total Protein Albumin Urine Color YELLOW Urine Appearance HAZY Urine pH 6.0 Ur Specific [place] 1.020 Urine Protein NEG Urine Glucose (UA) 250 H Urine Ketones NEG Urine Blood NEG Urine Nitrite NEG Ur Leukocyte Esterase NEG Stool Occult Blood POSITIVE Urine Opiates Screen Urine Fentanyl Screen Ur Barbiturates Screen Ur Phencyclidine Scrn Ur Amphetamines Screen U Benzodiazepines Scrn Urine Cocaine Screen U Marijuana (THC) Screen COVID-19 (SRAVAN) COVID-19 Clin Com Blood Type B Positive Antibody Screen NEGATIVE Crossmatch See Detail 07/16/21 14:55 WBC RBC Hgb Hct MCV MCH MCHC RDW Plt Count MPV Immature Gran % (Auto) Neut % (Auto) Lymph % (Auto) Sullivan % (Auto) Eos % (Auto) Baso % (Auto) Lymph # (Auto) [place] # (Auto) Eos # (Auto) Baso # (Auto) Abs Immat Gran (auto) Absolute Neuts (auto) Absolute Nucleated RBC Nucleated RBC % (auto) Sodium Potassium Chloride Carbon Dioxide Anion Gap BUN Creatinine Estim Creat Clear Calc Estimated GFR Random Glucose Calcium Magnesium Total Bilirubin AST ALT Alkaline Phosphatase Total Protein Albumin Urine Color Urine Appearance Urine pH Ur Specific [place] Urine Protein Urine Glucose (UA) Urine Ketones Urine Blood Urine Nitrite Ur Leukocyte Esterase Stool Occult Blood Urine Opiates Screen Not Detected Urine Fentanyl Screen Not Detected Ur Barbiturates Screen Not Detected Ur Phencyclidine Scrn Not Detected Ur Amphetamines Screen POSITIVE H U Benzodiazepines Scrn Not Detected Urine Cocaine Screen Not Detected U Marijuana (THC) Screen Not Detected COVID-19 (SRAVAN) COVID-19 Clin Com Blood Type Antibody Screen Crossmatch Discharge Plan Discharge Patient Disposition: Home, Self-Care Discharge Diagnosis: gi bleed, anemia Referrals: Darien Salazar MD [Primary Care Provider] - 1 Week Discharge Medications: New ferrous sulfate 324 mg (65 mg iron) tablet,delayed release (DR/EC) 324 mg PO DAILY Qty: 30 0RF Continued tamsulosin 0.4 mg capsule 1 cap PO DAILY 0RF olanzapine 2.5 mg tablet 1 tab PO BEDTIME 0RF pantoprazole 40 mg tablet,delayed release (DR/EC) 40 mg PO DAILY Qty: 60 2RF sucralfate [Carafate] 100 mg/mL suspension 10 ml PO BID 30 Days Qty: 600 0RF Rx Instructions: Do not take at same time as pantoprazole, wait at least 1 hour fluoxetine 20 mg capsule 40 mg PO DAILY 0RF dextroamphetamine-amphetamine 15 mg tablet 1 tab PO BID 0RF albuterol sulfate 90 mcg/actuation HFA aerosol inhaler 1 puff inhalation Q4H 0RF Discharge Orders: Discharge Order (Routine); Ordered 07/16/21 Ordered By: Miguel Wylie Diet: advance to usual diet Activity on Discharge: As tolerated Stand Alone Forms: Patient Portal Discharge page Care Plan Goals: manage hernia, anemia Health Concerns: hernia, anemia Plan of Treatment: restart iron, follow up with thoracic for surgery, repeat hgb on sunday Assessment: see above
--- NOTE | 2021-07-16 19:01 | PC.NURSE ---
pt feeling anxious in the hospital, reporting that he wants to go home. this RN educated him on the dangers of leaving and included that he would be signing out AMA - pt spoke with Dr. Wylie and plan was to d/c with AMA. pt just updated this RN that he will stay in the hospital because he does not have a ride anyway . Dr. Wylie made aware
[2021-07-17] VITALS (9 sets, daily range): BP systolic 145–162; BP diastolic 79–89; PULSE 66–77; RESP 12–18; TEMP 36.6–37.1; O2SAT 96–98
[2021-07-17] MEDS: Pantoprazole Sodium 40 MG/10 ML VIAL IVPUSH (06:08)
[2021-07-17 06:59] LABS: Hematocrit 24.3 % (42.0-52.0); Mean Corpuscular HGB Conc 28.4 g/dl (31.0-36.0); Mean Corpuscular Hemoglobin 21.1 pg (27.0-33.0); Mean Corpuscular Volume 74.3 fL (80.0-98.0); Mean Platelet Volume 9.8 fL (9.4-12.4); Platelet Count 391 X10*3/uL (160-400); Red Blood Count 3.27 X10*6/uL (4.60-5.80); Red Cell Distribution Width 21.1 % (11.0-16.0); White Blood Count 5.9 X10*3/uL (4.8-10.8)
[2021-07-17 07:08] LABS: Hemoglobin 6.9 g/dl (14.0-18.0)
[2021-07-17 07:29] LABS: Anion Gap 12 (12-20); Blood Urea Nitrogen 14 mg/dL (9-16); Calcium 8.1 mg/dL (8.4-10.2); Carbon Dioxide 22 mmol/L (22-29); Chloride 110 mmol/L (96-108); Creatinine Clr Calc Pharmacy 110.1; Estimated Glomerular Filt Rate > 60; Glucose Fasting 92 mg/dL (60-99); Potassium 4.1 mmol/L (3.3-5.1); Sodium 140 mmol/L (135-145)
[2021-07-17] MEDS: Amphetamine Mixed Salts 10 MG TABLET 30 MG PO (08:18)
[2021-07-17] MEDS: Sucralfate Oral Suspension 1 GM/10 ML ORAL.SUSP PO (08:19)
[2021-07-17] MEDS: FLUoxetine HCl 20 MG CAPSULE 40 MG PO (08:19)
--- NOTE | 2021-07-17 09:39 | PM.EVENT ---
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 needs to restart iron, consider iv if po not absorbed. continue ppi and carafate repeat egd not likely to add much, ultimate rx will be hh repair.
--- NOTE | 2021-07-17 10:23 | MHC.CM.PN ---
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
--- NOTE | 2021-07-17 10:57 | PC.NURSE ---
0710 Critical result Hgb 6.9. Dr. Wylie made aware. 1 unit prbc to be infused. Pt asymptomatic. 0811 Blood transfusion started. Pt offering no complaints. Pt medicated per jul. Callbell and belongings within reach. 0959 blood transfusion complete. no reactions noted.
--- NOTE | 2021-07-17 10:59 | P.PNIM_ITS ---
Subjective Subjective Date of Service: 07/17/21 Interval History: cc: weakness interval history: no gross bleeding, was planning on leaving yesterday, but decided to stay overnight to get repeat hgb. Cardiovascular Cardiovascular: Reports no additional cardiovascular complaints Respiratory Respiratory: Reports no additional respiratory complaints Physical Exam Vital Signs: Vital Signs: Last Vital Signs Temp 98 F 07/17/21 10:38 Pulse 77 07/17/21 10:38 Resp 14 07/17/21 10:38 BP 161/85 H 07/17/21 10:38 Pulse Ox 98 07/17/21 07:46 BMI result Body Mass Index 28.5 General: AO X 3, no acute distress Resp: CTA bilateral, no accessory muscles used CVS: S1,S2,RRR GI: soft, non tender, non distended Neuro: motor grossly intact, alert Psych: appropriate affect, appropriate insight Objective Data Active Medications Acetaminophen (Acetaminophen 325 Mg Tablet) 650 mg PO Q6H PRN PRN Reason: mild pain Last Admin: 07/16/21 16:43 Dose: 650 mg Documented by: GABE Amphetamine/Dextroamphetamine (Amphetamine Mixed Salts 10 Mg Tablet) 30 mg PO DAILY [facility] Last Admin: 07/17/21 08:18 Dose: 10 mg Documented by: KIMMY Comments: Pt only wanted to take 10mg. refused to take any more Fluoxetine HCl (Fluoxetine Hcl 20 Mg Capsule) 40 mg PO DAILY [facility] Last Admin: 07/17/21 08:19 Dose: 40 mg Documented by: KIMMY Olanzapine (Olanzapine 2.5 Mg Tablet) 2.5 mg PO DAILY [facility] Last Admin: 07/17/21 08:19 Dose: Not Given Documented by: KIMMY Non-Admin Reason: Patient Refused Pantoprazole Sodium (Pantoprazole Sodium 40 Mg/10 Ml Vial) 40 mg IVPUSH BID@7430,1630 [facility] Last Admin: 07/17/21 06:08 Dose: 40 mg Documented by: JOVI Pharmacy Consult (Consult Rx Perform Med Rec) 1 each MISCELLANE ONCE PRN PRN Reason: Consult order Sodium Chloride (0.9 % Sodium Chloride Flush 3 Ml Syringe) 3 ml IVFLUSH QSHIFT [facility] Last Admin: 07/17/21 08:01 Dose: Not Given Documented by: KIMMY Non-Admin Reason: Med Not Available Sucralfate (Sucralfate Oral Suspension 1 Gm/10 Ml Oral.Susp) 1 gm PO QIDACHS [facility] Last Admin: 07/17/21 08:19 Dose: 1 gm Documented by: KIMMY Tamsulosin HCl (Tamsulosin Hcl 0.4 Mg Capsule) 0.4 mg PO BEDTIME [facility] Labs CBC & Chem 7: 07/17/21 06:21 07/17/21 06:21 Labs: Laboratory Results - last 24 hr 07/16/21 07/16/21 07/16/21 13:06 13:06 13:06 MCV 71.8 L MCH 19.9 L MCHC 27.7 L RDW 19.9 H Plt Count 444 H MPV 8.8 L Immature Gran % (Auto) 0.3 Neut % (Auto) 82.4 H Lymph % (Auto) 8.4 L [place] % (Auto) 8.1 Eos % (Auto) 0.5 Baso % (Auto) 0.3 Lymph # (Auto) 0.5 L [place] # (Auto) 0.5 Eos # (Auto) 0.0 Baso # (Auto) 0.0 Abs Immat Gran (auto) 0.02 Absolute Neuts (auto) 5.2 Absolute Nucleated RBC 0.000 Nucleated RBC % (auto) 0.0 Anion Gap 10 L Estim Creat Clear Calc 83.1 Estimated GFR > 60 Random Glucose 146 H Fasting Glucose Calcium 8.9 Magnesium 1.9 Total Bilirubin 0.3 AST 9 ALT 10 Alkaline Phosphatase 57 Total Protein 6.4 L Albumin 3.9 Urine Color Urine Appearance Urine pH Ur Specific [place] Urine Protein Urine Glucose (UA) Urine Ketones Urine Blood Urine Nitrite Ur Leukocyte Esterase Stool Occult Blood Urine Opiates Screen Urine Fentanyl Screen Ur Barbiturates Screen Ur Phencyclidine Scrn Ur Amphetamines Screen U Benzodiazepines Scrn Urine Cocaine Screen U Marijuana (THC) Screen COVID-19 (SRAVAN) Negative COVID-19 Clin Com See Note Blood Type Antibody Screen Crossmatch 07/16/21 07/16/21 07/16/21 13:21 13:37 14:55 MCV MCH MCHC RDW Plt Count MPV Immature Gran % (Auto) Neut % (Auto) Lymph % (Auto) [place] % (Auto) Eos % (Auto) Baso % (Auto) Lymph # (Auto) [place] # (Auto) Eos # (Auto) Baso # (Auto) Abs Immat Gran (auto) Absolute Neuts (auto) Absolute Nucleated RBC Nucleated RBC % (auto) Anion Gap Estim Creat Clear Calc Estimated GFR Random Glucose Fasting Glucose Calcium Magnesium Total Bilirubin AST ALT Alkaline Phosphatase Total Protein Albumin Urine Color YELLOW Urine Appearance HAZY Urine pH 6.0 Ur Specific [place] 1.020 Urine Protein NEG Urine Glucose (UA) 250 H Urine Ketones NEG Urine Blood NEG Urine Nitrite NEG Ur Leukocyte Esterase NEG Stool Occult Blood POSITIVE Urine Opiates Screen Urine Fentanyl Screen Ur Barbiturates Screen Ur Phencyclidine Scrn Ur Amphetamines Screen U Benzodiazepines Scrn Urine Cocaine Screen U Marijuana (THC) Screen COVID-19 (SRAVAN) COVID-19 Clin Com Blood Type B Positive Antibody Screen NEGATIVE Crossmatch See Detail 07/16/21 07/17/21 07/17/21 14:55 06:21 06:21 MCV 74.3 L MCH 21.1 L MCHC 28.4 L RDW 21.1 H Plt Count 391 MPV 9.8 Immature Gran % (Auto) Neut % (Auto) Lymph % (Auto) [place] % (Auto) Eos % (Auto) Baso % (Auto) Lymph # (Auto) [place] # (Auto) Eos # (Auto) Baso # (Auto) Abs Immat Gran (auto) Absolute Neuts (auto) Absolute Nucleated RBC 0.000 Nucleated RBC % (auto) 0.0 Anion Gap 12 Estim Creat Clear Calc 110.1 Estimated GFR > 60 Random Glucose Fasting Glucose 92 Calcium 8.1 L D Magnesium Total Bilirubin AST ALT Alkaline Phosphatase Total Protein Albumin Urine Color Urine Appearance Urine pH Ur Specific [place] Urine Protein Urine Glucose (UA) Urine Ketones Urine Blood Urine Nitrite Ur Leukocyte Esterase Stool Occult Blood Urine Opiates Screen Not Detected Urine Fentanyl Screen Not Detected Ur Barbiturates Screen Not Detected Ur Phencyclidine Scrn Not Detected Ur Amphetamines Screen POSITIVE H U Benzodiazepines Scrn Not Detected Urine Cocaine Screen Not Detected U Marijuana (THC) Screen Not Detected COVID-19 (SRAVAN) COVID-19 Clin Com Blood Type Antibody Screen Crossmatch Assessment and Plan (1) GI bleed: Status: Acute Plan 65-year-old male presented with weakness Weakness due to symptomatic chronic blood loss anemia from upper GI bleed from paraesophageal hernia Transfused 1 unit 07/16, hgb was unchanged at 6.9 transfuse another unit today Monitor H&H PPI, Carafate gi appreciated - unlikely to benefit from repeat EGD Outpatient follow-up with thoracic BPH Flomax ADHD Adderall Mood disorder Fluoxetine and olanzapine DVT prophylaxis -mechanical due to GI bleed Quality Stroke Does the patient have a stroke diagnosis?: No VTE Prior VTE?: No VTE Risk Level:: Medical - moderate - high VTE Device Contraindication: N/A - Device Ordered VTE Drug Contraindication: Treatment Not Indicated
--- NOTE | 2021-07-17 11:56 | PC.NURSE ---
Pt dc'd with yesterdays paperwork, okay per Dr. Shaffer due to pt being in a watkins to leave. Pt verbalized understanding of DC paperwork and set up a ride for himself to go home. Tech escorted pt out.
--- NOTE | 2021-07-17 13:30 | CONS_ITS ---
DATE OF SERVICE: 07/17/2021 REFERRING PHYSICIAN: Miguel Wylie MD REASON FOR CONSULTATION: Hiatal hernia with Kolby ulcers and GI bleeding. HISTORY OF PRESENT ILLNESS: The patient is a pleasant 65-year-old man, who was admitted to the hospital after presenting to the emergency room yesterday with complaints of weakness for several days prior to admission. He has a history of GI blood loss from Kolby erosions diagnosed at the time of endoscopy on June 10. Findings at that time included a tight-appearing EG junction with esophagitis. This was balloon dilated. Kolby erosions were identified and a large hiatal hernia. Biopsies from the antrum showed no H pylori. Duodenitis was also noted. The patient has been treated with Carafate and high-dose proton pump inhibitor on a b.i.d. basis. He was prescribed iron, but stopped taking this. He was admitted with a hematocrit of 24.9, which was down from 26.1 on June 06. MCV is quite low and his last ferritin on June 06, was low at 5 consistent with iron deficiency. He is currently receiving a second unit of packed red blood cells. He does state compliance with his other medications, but not iron. PAST MEDICAL HISTORY: 1. Hiatal hernia as above. 2. Iron deficiency anemia. 3. COVID-19 infection. 4. Attention deficit disorder. 5. Esophageal stricture. 6. Depression. CURRENT MEDICATIONS: List is reviewed in the chart. ALLERGIES: THERE ARE NONE REPORTED. FAMILY HISTORY: This is reviewed with the patient and is noncontributory. SOCIAL HISTORY: There is no current substance abuse. REVIEW OF SYSTEMS: SKIN: No pruritus. HEENT: Negative. CARDIOPULMONARY: No shortness of breath or chest pain. GASTROINTESTINAL: As above. GENITOURINARY: Negative. NEUROPSYCHIATRIC: Negative. PHYSICAL EXAMINATION: GENERAL: A pleasant male, in no acute distress. VITAL SIGNS: Reviewed in the electronic medical record and are stable. SKIN: Anicteric. HEENT: No scleral icterus. NECK: Without lymphadenopathy or thyromegaly. LUNGS: Clear. HEART: Regular rate and rhythm. S1, S2. No murmur. ABDOMEN: Soft without focal masses or tenderness. Bowel sounds are present. No organomegaly is noted. EXTREMITIES: Without edema. LABORATORY DATA AND X-RAYS: Reviewed. IMPRESSION: Iron-deficiency anemia with Kolby erosions and hiatal hernia. PLAN: I would recommend he resume iron and if this does not allow for improvement in his hematocrit, then he would be a candidate for intravenous iron. The ultimate treatment for his Kolby erosions will be repair of his hiatal hernia. I would also recommend he have elective colonoscopy for further evaluation and to rule out a lower GI tract mass as a cause for his iron deficiency anemia. Thank you for asking me to see him. I will follow him as needed. MD LUCY Eastman/PJ / [phone]
== END 2021-07-17 12:12 | disposition home or self-care (01) ==
LOC: HO.ED 15:57 → HO.EDOVER 16:30
PROVIDERS: Physician Assistant; Admitting Provider Internal Medicine; Emergency Provider Emergency Medicine; PCP Internal Medicine; Visit Provider Internal Medicine
DX: K92.2 Gastrointestinal hemorrhage, unspecified (principal); K44.0 Diaphragmatic hernia with obstruction, without gangrene; D50.9 Iron deficiency anemia, unspecified; R42 Dizziness and giddiness; R53.1 Weakness; U07.1 COVID-19; F32.A Depression, unspecified; F98.8 Other specified behavioral and emotional disorders with onset usually occurring in childhood and adolescence; Z20.822 Contact with and (suspected) exposure to COVID-19; Z67.21 Type B blood, Rh negative; Z79.899 Other long term (current) drug therapy
CPT/HCPCS: 36415; 36430; 74177; 80048; 80053; 80307; 81003; 82272; 83735; 85025; 85027; 86850; 86900; 86901; 86923; 87635; 96361; 96374; 99218; 99285; 99291; P9016

== ENCOUNTER 2021-07-27 11:35 | Outpatient (REF) | payer BC, SELFPAY ==
[2021-07-27 13:52] LABS: Hematocrit 29.6 % (42.0-52.0); Hemoglobin 8.6 g/dl (14.0-18.0); Mean Corpuscular HGB Conc 29.1 g/dl (31.0-36.0); Mean Corpuscular Hemoglobin 22.2 pg (27.0-33.0); Mean Corpuscular Volume 76.3 fL (80.0-98.0); Mean Platelet Volume 10.5 fL (9.4-12.4); Platelet Count 380 X10*3/uL (160-400); Red Blood Count 3.88 X10*6/uL (4.60-5.80); Red Cell Distribution Width 22.1 % (11.0-16.0)
[2021-07-27 14:11] LABS: Alanine Aminotransferase 10 U/L (0-40); Albumin Level 3.9 g/dL (3.5-5.0); Alkaline Phosphatase 60 U/L (39-117); Anion Gap 11 (12-20); Aspartate Amino Transferase 10 U/L (5-37); Bilirubin Direct < 0.2 mg/dL (0.0-0.5); Bilirubin Total 0.4 mg/dL (0.0-1.0); Blood Urea Nitrogen 17 mg/dL (9-16); Calcium 8.8 mg/dL (8.4-10.2); Carbon Dioxide 26 mmol/L (22-29); Chloride 107 mmol/L (96-108); Estimated Glomerular Filt Rate > 60; Glucose Random 145 mg/dL (60-115); Potassium 4.1 mmol/L (3.3-5.1); Sodium 140 mmol/L (135-145); Total Protein 6.6 g/dL (6.5-8.0)
== END 2021-07-27 11:36 | disposition home or self-care (01) ==
LOC: HO.HMGCLDS 11:35
PROVIDERS: PCP Internal Medicine; Visit Provider Internal Medicine
DX: K92.2 Gastrointestinal hemorrhage, unspecified (principal)
CPT/HCPCS: 36415; 80048; 80076; 85027

== ENCOUNTER 2021-08-03 10:56 | Day surgery (SDC) | payer BC, SELFPAY ==
--- NOTE | 2021-06-30 14:18 | HO.ANESPROP2 ---
HPI - Anesthesia Eval Consult details Narrative: 65yo M for Colonoscopy s/p EGD 06/09/21 with TIVA PMFSH Active Problems Active Problems: All Active Problems (Updated 06/30/21 @ 14:00 by Niya Hunt, COLIN) Wound dehiscence (Acute) Screening examination for infectious disease (Acute) Vertigo (Acute) Anemia (Acute) Hiatal hernia (Acute) Past Medical History Medical History (Updated 06/30/21 @ 14:00 by Niya Hunt RN) ADD (attention deficit disorder) Anemia Asthma COVID-19 Depression Esophageal stricture Iron deficiency anemia Paraesophageal hernia Family History Family history of problems with anesthesia: No Surgical History Surgical History (Updated 06/30/21 @ 13:54 by Niya Hunt RN) History of total hip arthroplasty Hx of colonoscopy Hx of esophagogastroduodenoscopy Hx of eye surgery Hx of tonsillectomy History of Problems with Anesthesia: No Social History Social History Patient Tobacco Use Status: Never used Tobacco Meds Allergies Allergy/AdvReac Type Severity Reaction Status Date / Time No Known Allergies Allergy Verified 06/30/21 14:06 Home Medications Medication Instructions Recorded Confirmed Last Taken Type albuterol sulfate 90 mcg/actuation INHALATION 10/14/20 Unknown History aerosol inhaler dextroamphetamine-amphetamine 15 1 tab PO BID 10/14/20 06/30/21 06/09/21 06:00 History mg tablet ergocalciferol (vitamin D2) 1,250 1,250 mcg PO QWEEK 10/14/20 06/30/21 Unknown History mcg (50,000 unit) capsule fluoxetine 20 mg capsule 20 mg PO DAILY 10/14/20 06/30/21 06/09/21 06:00 History tamsulosin 0.4 mg capsule 1 cap PO DAILY 06/30/21 06/30/21 Unknown History Exam Exam Date and Time: June 30, 2021 1418 Pertinent Lab Results Pertinent Lab Results: Laboratory Tests 06/06/21 14:46 Sodium 139 Potassium 4.5 Chloride 107 BUN 17 H Creatinine 1.25 Assessment and Plan Assessment Anesthesia Assessment: Chart Reviewed Final Anesthetic Review Family History of Problems with Anesthesia: No History of Problems with Anesthesia: No
[2021-08-03 11:24] VITALS: BP 135/88; PULSE 86; RESP 16; TEMP 36.2; O2SAT 97; BMI 27.1
--- NOTE | 2021-08-03 11:24 | P.HPSUR_ITS ---
Pre-Procedural Eval Section A Date of Service: 08/03/21 Section B Chief Complaint: anemia Relevant Family History (Specify if Yes): No Relevant Social History: None Present Medications: see Short Stay Collaborative assessment Medical History: Significant History (ADD (attention deficit disorder) Asthma COVID-19 Depression Iron deficiency anemia) History of Previous Operations: Relevant previous surgery/procedure and date(s) (History of total hip arthroplasty Hx of colonoscopy Hx of esophagogastroduodenoscopy Hx of eye surgery Hx of tonsillectomy) Allergies: Allergies Allergy/AdvReac Type Severity Reaction Status Date / Time No Known Allergies Allergy Verified 08/01/21 09:12 Review of Systems Sugical H&P ROS: Negative: Constitution, Cardiovascular, Respiratory, Neurological, Psychiatric, Hem-Onc, Allergic/Immunologic, Gastrointestinal, Genitourinary, Musculoskeletal, Integumentary, Endocrine and Eyes/Ears/Nose/Throat Exam Surgical H&P Exam: Normal: HEENT, Normal: Heart, Normal: Lungs, Normal: Ext remities, Normal: Abdomen, Normal: Skin and Normal: Neurological Plan Diagnosis/Plan: Unchanged I have reviewed the history and physical and performed a pertinent physical examination on my patient. No changes have occurred unless specified.
--- NOTE | 2021-08-03 11:28 | P.CONAN_ITS ---
[facility] Active Problems Active Problems: All Active Problems (Updated 08/01/21 @ 09:16 by Darien Salazar MD) Preoperative clearance (Acute) GI bleed (Acute) Esophageal hernia (Acute) Anemia (Acute) Kolby ulcer (Acute) Incarcerated paraesophageal hernia (Acute) Wound dehiscence (Acute) Screening examination for infectious disease (Acute) Vertigo (Acute) Anemia (Acute) Hiatal hernia (Acute) Past Medical History Medical History ADD (attention deficit disorder) Anemia Asthma COVID-19 Depression Esophageal stricture Iron deficiency anemia Paraesophageal hernia Family History Family History Father COPD (chronic obstructive pulmonary disease) Family history of problems with anesthesia: No Surgical History Surgical History History of total hip arthroplasty Hx of colonoscopy Hx of esophagogastroduodenoscopy Hx of eye surgery Hx of tonsillectomy History of Problems with Anesthesia: No Social History Social History Housing: Condominium Alcohol intake: current Patient Tobacco Use Status: Never used Tobacco e-Cigarette/Vaping Use: Never Used Second Hand Smoke Exposure: No Use of substances other than those prescribed or required for medical reasons: No Advance Directives: No Advance Directives Information Provided: Yes service: No Current occupational status: employed Cognitive needs: No Hearing needs: No Vision needs: No Meds Allergies Allergy/AdvReac Type Severity Reaction Status Date / Time No Known Allergies Allergy Verified 08/01/21 09:12 Home Medications Medication Instructions Recorded Confirmed Last Taken Type albuterol sulfate 90 mcg/actuation 1 puff INHALATION Q4H 10/14/20 08/01/21 Unknown History aerosol inhaler dextroamphetamine-amphetamine 15 1 tab PO BID 10/14/20 08/03/21 08/03/21 08:00 History mg tablet fluoxetine 20 mg capsule 40 mg PO DAILY 10/14/20 08/01/21 06/09/21 06:00 History Exam Exam Date and Time: August 03, 2021 [id number] Airway Mallampati Class: II TM Dist: >3cm Neck ROM: Full Heart: rrr Lungs: cta Assessment and Plan Assessment Anesthesia Assessment: Anesthesia Plan Discussed and Chart Reviewed Final Anesthetic Review Family History of Problems with Anesthesia: No History of Problems with Anesthesia: No NPO: Yes ASA Class: II Final Preanesthetic Review: No Changes in Pt Med Stat, Meds/Allgs Chart Reviewed and Consent Obtained/Reviewed Patient Risk: Intermediate Procedure Risk: Intermediate Anesthetic Plan Anesthetic Plan: MAC: Disposition: Standard PACU
--- NOTE | 2021-08-03 12:08 | PM.OP ---
Brief Operative Note Date of Service: 08/03/21 Pre-op diagnosis: anemia Post-op diagnosis: same Procedure: see op note Surgeon: Kim Jade MD Anesthesia: MAC Was an Staff Nurse Midwife used for this Procedure?: No Estimated blood loss (mL): 0 Condition: stable Disposition: PACU
--- NOTE | 2021-08-03 12:08 | W.PM.OPN ---
Operative Note Operative Note Date of Service: 08/03/21 Narrative: Operative Information Procedure Description: Colonoscopy COLONOSCOPY Instrument: Olympus variable stiffness pediatric scope 190L Colonoscopy Monitoring: Vital signs and clinical assessment, continuous EKG monitoring, Pulse oximetry, Carbon Dioxide monitoring and blood pressure monitoring were done throughout the procedure. Colon withdrawal time was 16 minutes. Procedure: The patient was placed in the left lateral decubitis position and pre-procedure medications were administered. After a digital rectal examination of the ano-rectum, the video colonoscope was inserted into the rectum and advanced through the colon to the cecum/TI. The colonoscope was slowly withdrawn in a retrograde panoramic fashion and the colon mucosa was carefully examined including a retroflexed view of the rectum. Findings and interventions are described below. Procedure Difficulty: easy Findings: Terminal Ileum-normal Cecum:normal Ascending Colon: normal Transverse Colon -normal Descending Colon:normal Sigmoid Colon: mild diverticulitis Rectum: Retroflexion with small internal hemorrhoids, grade I Anorectum - normal Colon preparation: [place] Bowel Preparation Scale Right colon; 2 (adherent green material to areas of right colon--hard to wash off) Transverse colon: 2 Left colon; 2 (0 = Unprepared colon segment with mucosa not seen due to solid stool that cannot be cleared. 1 = Portion of mucosa of the colon segment seen, but other areas of the colon segment not well seen due to staining, residual stool and/or opaque liquid. 2 = Minor amount of residual staining, small fragments of stool and/or opaque liquid, but mucosa of colon segment seen well. 3 = Entire mucosa of colon segment seen well with no residual staining, small fragments of stool or opaque liquid) Impression and Post Procedure Diagnosis: internal hemorrhoids diverticular disease Plan: High fiber diet leaflet Avoid straining at stool, epsom salts and sitz bath, anusol supps or cream Repeat Colonoscopy in 5 years due to adherent green material to parts of right colon or earlier if clinically indicated outpatient capsule endoscopy Above findings were reviewed with the patient and relevant handouts were provided if indicated.
[2021-08-03 12:10] VITALS: BP 118/78; PULSE 80; RESP 16; TEMP 36.2; O2SAT 94
[2021-08-03 12:25] VITALS: BP 133/81; PULSE 79; RESP 16; TEMP 36.2; O2SAT 97
== END 2021-08-03 12:59 | disposition home or self-care (01) ==
PROVIDERS: PCP Internal Medicine; Visit Provider Internal Medicine Gastroenterology
PROC: 0DJD8ZZ Inspection of Lower Intestinal Tract, Via Natural or Artificial Opening Endoscopic (ICD-10-PCS; CPT 45378; principal; 2021-08-03 12:30)
DX: D64.9 Anemia, unspecified (principal); K57.30 Diverticulosis of large intestine without perforation or abscess without bleeding; K64.0 First degree hemorrhoids; K75.81 Nonalcoholic steatohepatitis (NASH); F90.9 Attention-deficit hyperactivity disorder, unspecified type; Z96.641 Presence of right artificial hip joint; Z86.16 Personal history of COVID-19; Z79.899 Other long term (current) drug therapy
CPT/HCPCS: 45378

== ENCOUNTER 2021-08-16 09:50 | Outpatient (REF) | payer BC, SELFPAY ==
--- NOTE | ~2021-08-16 | FL_ITS ---
EXAMINATION: FL BARIUM SWALLOW CLINICAL INFORMATION: Diaphragmatic hernia. COMPARISON: Previous CT of the abdomen and pelvis June 2021. TECHNIQUE: Barium swallow examination is performed using fluoroscopic evaluation in addition to multiple fluoroscopic spot views. The patient is imaged both upright and prone and using both thick and thin sulfate along with effervescent granules. Barium tablet was also administered. Fluoroscopy time: 1.8 minutes DAP: 15 Gy-cm2 Images: 56 FINDINGS: No aspiration or penetration is seen. Esophageal motility is normal. No esophageal mass or stricture or mucosal irregularity is seen. There is a large hiatal hernia containing the proximal two-thirds of the stomach. This is similar to recent 07/16/2021 CT scan. No gastroesophageal reflux is seen. Stomach is normal appearing. Barium tablet passed into the stomach. FL/FL barium swallow IMPRESSION: Large hiatal hernia similar to CT scan of the abdomen and pelvis June 2021.
== END 2021-08-16 09:51 | disposition home or self-care (01) ==
LOC: HO.XRAY 09:50
PROVIDERS: PCP Internal Medicine; Visit Provider Surgery
DX: K44.0 Diaphragmatic hernia with obstruction, without gangrene (principal)
CPT/HCPCS: 74220

== ENCOUNTER 2021-10-05 16:53 | Outpatient (REF) | payer BC, SELFPAY ==
[2021-10-05 17:26] LABS: Hematocrit 36.5 % (42.0-52.0); Hemoglobin 10.5 g/dl (14.0-18.0); Mean Corpuscular HGB Conc 28.8 g/dl (31.0-36.0); Mean Corpuscular Hemoglobin 21.3 pg (27.0-33.0); Mean Platelet Volume 9.9 fL (9.4-12.4); Platelet Count 346 X10*3/uL (160-400); Red Blood Count 4.93 X10*6/uL (4.60-5.80); Red Cell Distribution Width 20.3 % (11.0-16.0); White Blood Count 6.7 X10*3/uL (4.8-10.8)
[2021-10-05 17:45] LABS: Alanine Aminotransferase 13 U/L (0-40); Albumin Level 4.3 g/dL (3.5-5.0); Alkaline Phosphatase 75 U/L (39-117); Anion Gap 14 (12-20); Aspartate Amino Transferase 11 U/L (5-37); Bilirubin Direct < 0.2 mg/dL (0.0-0.5); Bilirubin Total < 0.2 mg/dL (0.0-1.0); Blood Urea Nitrogen 20 mg/dL (9-16); Calcium 9.3 mg/dL (8.4-10.2); Carbon Dioxide 25 mmol/L (22-29); Chloride 108 mmol/L (96-108); Cholesterol 179 mg/dL; Estimated Glomerular Filt Rate > 60; Glucose Random 92 mg/dL (60-115); HDL Cholesterol 52 mg/dL; LDL Cholesterol Calculated 96 mg/dl; Potassium 4.7 mmol/L (3.3-5.1); Sodium 142 mmol/L (135-145); Total Protein 7.4 g/dL (6.5-8.0); Triglycerides 158 mg/dL
[2021-10-05 18:03] LABS: Thyroid Stimulating Hormone 0.85 uIU/mL (0.32-4.0)
== END 2021-10-05 16:54 | disposition home or self-care (01) ==
LOC: HO.LAB 16:53
PROVIDERS: PCP Internal Medicine; Visit Provider Internal Medicine
DX: D64.9 Anemia, unspecified (principal)
CPT/HCPCS: 36415; 80048; 80061; 80076; 84443; 85027

== ENCOUNTER 2022-02-09 13:17 | Outpatient (REF) | payer BC, SELFPAY ==
[2022-02-09 14:10] LABS: Hemoglobin 15.5 g/dl (14.0-18.0); Mean Corpuscular HGB Conc 34.4 g/dl (31.0-36.0); Mean Corpuscular Hemoglobin 29.5 pg (27.0-33.0); Mean Corpuscular Volume 85.6 fL (80.0-98.0); Mean Platelet Volume 10.1 fL (9.4-12.4); Platelet Count 292 X10*3/uL (160-400); Red Blood Count 5.26 X10*6/uL (4.60-5.80); Red Cell Distribution Width 14.3 % (11.0-16.0); White Blood Count 5.7 X10*3/uL (4.8-10.8)
[2022-02-09 14:35] LABS: Alanine Aminotransferase 15 U/L (0-40); Albumin Level 4.2 g/dL (3.5-5.0); Alkaline Phosphatase 76 U/L (39-117); Anion Gap 15 (12-20); Aspartate Amino Transferase 14 U/L (5-37); Bilirubin Direct 0.2 mg/dL (0.0-0.5); Bilirubin Total 0.6 mg/dL (0.0-1.0); Blood Urea Nitrogen 17 mg/dL (9-16); Calcium 9.3 mg/dL (8.4-10.2); Carbon Dioxide 26 mmol/L (22-29); Chloride 104 mmol/L (96-108); Cholesterol 185 mg/dL; Estimated Glomerular Filt Rate > 60; Glucose Random 128 mg/dL (60-115); HDL Cholesterol 44 mg/dL; LDL Cholesterol Calculated 115 mg/dl; Potassium 4.6 mmol/L (3.3-5.1); Sodium 140 mmol/L (135-145); Total Protein 7.2 g/dL (6.5-8.0); Triglycerides 132 mg/dL
== END 2022-02-09 13:18 | disposition home or self-care (01) ==
LOC: HO.HMGCLDS 13:17
PROVIDERS: PCP Internal Medicine; Visit Provider Internal Medicine
DX: K44.9 Diaphragmatic hernia without obstruction or gangrene (principal)
CPT/HCPCS: 36415; 80048; 80061; 80076; 85027

== ENCOUNTER 2022-06-07 13:14 | Outpatient (REF) | payer BC, SELFPAY ==
[2022-06-07 16:44] LABS: Hematocrit 45.7 % (42.0-52.0); Hemoglobin 15.5 g/dl (14.0-18.0); Mean Corpuscular HGB Conc 33.9 g/dl (31.0-36.0); Mean Corpuscular Hemoglobin 30.8 pg (27.0-33.0); Mean Corpuscular Volume 90.9 fL (80.0-98.0); Mean Platelet Volume 10.1 fL (9.4-12.4); Platelet Count 338 X10*3/uL (160-400); Red Blood Count 5.03 X10*6/uL (4.60-5.80); Red Cell Distribution Width 11.5 % (11.0-16.0); White Blood Count 8.3 X10*3/uL (4.8-10.8)
[2022-06-07 17:00] LABS: Alanine Aminotransferase 14 U/L (0-40); Albumin Level 4.3 g/dL (3.5-5.0); Alkaline Phosphatase 88 U/L (39-117); Anion Gap 11 (12-20); Aspartate Amino Transferase 20 U/L (5-37); Bilirubin Direct < 0.2 mg/dL (0.0-0.5); Bilirubin Total 0.3 mg/dL (0.0-1.0); Blood Urea Nitrogen 26 mg/dL (9-16); Calcium 9.8 mg/dL (8.4-10.2); Carbon Dioxide 29 mmol/L (22-29); Chloride 106 mmol/L (96-108); Cholesterol 178 mg/dL; Estimated Glomerular Filt Rate > 60; Glucose Random 111 mg/dL (60-115); HDL Cholesterol 54 mg/dL; LDL Cholesterol Calculated 97 mg/dl; Potassium 4.2 mmol/L (3.3-5.1); Sodium 142 mmol/L (135-145); Total Protein 7.4 g/dL (6.5-8.0); Triglycerides 137 mg/dL
[2022-06-09 08:33] LABS: HIV AB/AG Nonreactive (Nonreactive); HIV Num 1 0.11 S/CO (0.00-0.99)
== END 2022-06-07 13:15 | disposition home or self-care (01) ==
LOC: HO.HMGCLDS 13:14
PROVIDERS: PCP Internal Medicine; Visit Provider Internal Medicine
DX: Z11.9 Encounter for screening for infectious and parasitic diseases, unspecified (principal); Z11.4 Encounter for screening for human immunodeficiency virus [HIV]; F32.A Depression, unspecified; I10 Essential (primary) hypertension
CPT/HCPCS: 36415; 80048; 80061; 80076; 84443; 85027; 87389

== ENCOUNTER 2023-02-05 11:15 | Outpatient (AMB) | payer BC, SELFPAY ==
--- NOTE | 2023-02-05 11:48 | AM.OFFWIN_ITS ---
Intake Vital Signs 02/05/23 11:55 Height 5 ft 11 in Weight 207 lb BMI 28.9 BP 130/78 Blood Pressure Location Rt brachial Position Sitting Pulse 73 Pulse Source Pulse Oximeter Temp 98.9 F Temp Source Temporal Artery Scan Pulse Oximetry (%) 100 Oxygen Delivery Method Room Air Intake Visit Reasons: EP Pain hands/arms Patient Tobacco Use Status: Never used Tobacco Allergies No Known Allergies Allergy (Verified 02/09/23 15:57) Medication List - Last Reconciled 02/09/23 by Darien Salazra MD albuterol sulfate 90 mcg/actuation 1 puff inhalation Q4H amlodipine 5 mg PO DAILY dextroamphetamine-amphetamine 15 mg (Adderall) 15 mg PO BID ferrous sulfate 324 mg PO BID 30 days fluoxetine 40 mg (2 x 20 mg) PO DAILY fluticasone propionate 50 mcg/actuation (Allergy Relief (fluticasone)) 1 spray intranasal DAILY meloxicam 15 mg PO DAILY metoprolol tartrate (Lopressor) 50 mg PO DAILY pantoprazole 40 mg PO DAILY Do you need a note to return to daycare/school/sports/work: No HPI EP Pain hands/arms HPI Details 67-year-old male presents to the office for a sick visit. He is complaining of pain in the right hand. 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 Difficulty opening jars. Swelling on the hand. [facility] Medical History Anemia Esophageal stricture Paraesophageal hernia Depression ADD (attention deficit disorder) Iron deficiency anemia Asthma COVID-19 Surgical History History of hernia repair Hx of tonsillectomy Hx of eye surgery History of total hip arthroplasty Hx of colonoscopy Hx of esophagogastroduodenoscopy Family History Father COPD (chronic obstructive pulmonary disease) [facility] Alcohol intake: current Patient Tobacco Use Status: Never used Tobacco e-Cigarette/Vaping Use: Never Used Second Hand Smoke Exposure: No service: No Current occupational status: employed Cognitive needs: No Hearing needs: No Vision needs: No Physical Exam Vital Signs: Last Vital Signs Temp 98.9 F 02/05/23 11:55 Pulse 73 02/05/23 11:55 BP 130/78 02/05/23 11:55 Pulse Ox 100 02/05/23 11:55 Oxygen Delivery Method Room Air 02/05/23 11:55 BMI result Body Mass Index 28.9 Const General: cooperative and healthy appearing Nutritional Appearance: well nourished Orientation/consciousness: patient oriented x3 Limitations: no limitations HEENT Head: Yes normal to inspection Eyes General: appearance normal, both eyes and all related structures Neck Neck: Yes normal visual inspection Chest Chest palpation & inspection: normal palpation of entire chest wall Resp Effort & Inspection: normal respiratory effort Neuro General: patient oriented x3 Extrem Other: Right hand: Swelling over the dorsum of the hand. Pain on flexion of the fingers. Assessment & Plan Assessment & Plan (1) Pain in right hand: Code(s): M79.641 - Pain in right hand Plan: X-ray images of the hand were personally reviewed by me. Osteoarthritis seen. Patient was advised stretching exercises and meloxicam was prescribed. If symptoms not better to follow-up here. Orders: Orders Lipid Panel 02/05/23 M79.641 - Pain in right hand Liver Panel 02/05/23 M79.641 - Pain in right hand XR hand RT min 3V 02/05/23 M79.641 - Pain in right hand Basic Metabolic Panel 02/05/23 M79.641 - Pain in right hand Complete Blood Count no Diff 02/05/23 M79.641 - Pain in right hand Thyroid Stimulating Hormone 02/05/23 M79.641 - Pain in right hand Coding Level of Care Code Est Pt Level 3 (09383) Diagnoses Pain in right hand M79.641
[2023-02-05 11:55] VITALS: BP 130/78; PULSE 73; TEMP 37.2; O2SAT 100; BMI 28.9
== END 2023-02-05 14:31 | disposition home or self-care (01) ==
PROVIDERS: PCP Internal Medicine; Visit Provider Internal Medicine
DX: M79.641 Pain in right hand (principal)
CPT/HCPCS: 99213

== ENCOUNTER 2023-02-05 12:14 | Outpatient (REF) | payer BC, SELFPAY ==
--- NOTE | ~2023-02-05 | XR_ITS ---
EXAMINATION: XR HAND, RIGHT CLINICAL INFORMATION: Right hand pain. COMPARISON: None available. TECHNIQUE: PA, lateral, and oblique views of the right hand. FINDINGS: Mild to moderate multifocal osteoarthritis is present throughout the right hand, characterized by nonuniform joint space narrowing and marginal osteophytes, most notably at the first CMC and first MCP joints as well as the DIP joints. No erosions. Mild osteoarthritis at the DRUJ. No fracture or malalignment. Soft tissues are unremarkable. XR/XR hand RT min 3V IMPRESSION: Mild to moderate multifocal osteoarthritis in the right hand. No acute osseous abnormalities.
== END 2023-02-05 12:15 | disposition home or self-care (01) ==
LOC: HO.HMGCX 12:14
PROVIDERS: PCP Internal Medicine; Visit Provider Internal Medicine
DX: M79.641 Pain in right hand (principal)
CPT/HCPCS: 73130

== ENCOUNTER 2023-02-23 14:25 | Outpatient (REF) | payer BC, SELFPAY ==
[2023-02-23 16:07] LABS: Hematocrit 42.5 % (42.0-52.0); Hemoglobin 14.1 g/dl (14.0-18.0); Mean Corpuscular HGB Conc 33.2 g/dl (31.0-36.0); Mean Corpuscular Hemoglobin 28.9 pg (27.0-33.0); Mean Corpuscular Volume 87.1 fL (80.0-98.0); Mean Platelet Volume 10.2 fL (9.4-12.4); Platelet Count 321 X10*3/uL (160-400); Red Blood Count 4.88 X10*6/uL (4.60-5.80); Red Cell Distribution Width 12.3 % (11.0-16.0); White Blood Count 8.4 X10*3/uL (4.8-10.8)
[2023-02-23 17:24] LABS: Alanine Aminotransferase 16 U/L (0-40); Alkaline Phosphatase 79 U/L (39-117); Anion Gap 14 (12-20); Aspartate Amino Transferase 13 U/L (5-37); Bilirubin Direct 0.2 mg/dL (0.0-0.5); Bilirubin Total 0.5 mg/dL (0.0-1.0); Blood Urea Nitrogen 12 mg/dL (9-16); Carbon Dioxide 25 mmol/L (22-29); Chloride 105 mmol/L (96-108); Cholesterol 160 mg/dL (<200); Estimated Glomerular Filt Rate > 60; Glucose Random 114 mg/dL (60-115); HDL Cholesterol 40 mg/dL (>40); LDL Cholesterol Calculated 100 mg/dL (<100); Potassium 4.3 mmol/L (3.3-5.1); Sodium 140 mmol/L (135-145); Total Protein 7.3 g/dL (6.5-8.0); Triglycerides 102 mg/dL (<150)
[2023-02-23 17:30] LABS: Thyroid Stimulating Hormone 0.84 uIU/mL (0.32-4.0)
== END 2023-02-23 14:26 | disposition home or self-care (01) ==
LOC: HO.HMGCLDS 14:25
PROVIDERS: PCP Internal Medicine; Visit Provider Internal Medicine
DX: M79.641 Pain in right hand (principal)
CPT/HCPCS: 36415; 80048; 80061; 80076; 84443; 85027

== ENCOUNTER 2023-04-05 13:57 | Outpatient (AMB) | payer BC, SELFPAY ==
--- NOTE | 2023-04-05 14:00 | A.OFFPC_ITS ---
Vital Signs 04/05/23 14:02 Height 5 ft 11 in Weight 205 lb 6 oz BMI 28.6 BP 110/74 Blood Pressure Location Lt brachial Position Sitting Pulse 74 Pulse Source Pulse Oximeter Pulse Oximetry (%) 94 Oxygen Delivery Method Room Air Intake Visit Reasons: Acid reflux Intake Note: Patient is here to follow up on Acid reflux. Complaint of arthritis in both hands, knees and shoulders. Request for RA specialty referral, request for stockbridge disease testing, auto immune testing. 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 Accompanied by: Spouse Allergies No Known Allergies Allergy (Verified 04/06/23 14:32) Medication List - Last Reconciled 04/06/23 by Darien Salazar MD albuterol sulfate 90 mcg/actuation 1 puff inhalation Q4H amlodipine 5 mg PO DAILY dextroamphetamine-amphetamine 15 mg (Adderall) 15 mg PO BID fluoxetine 40 mg (2 x 20 mg) PO DAILY fluticasone propionate 50 mcg/actuation (Allergy Relief (fluticasone)) 1 spray intranasal DAILY metoprolol tartrate (Lopressor) 50 mg PO DAILY pantoprazole 40 mg PO DAILY prednisone 5 mg PO DAILY Tobacco use date assessed: 04/05/23 Fall risk assessment: No Falls in past year Last assessed Fall Risk: 04/05/23 Dental Screening Dental Screen Date: 04/05/23 Did you have a dental visit in the last 12 months?: Yes Did you have a dental problem in the last 6 months where you did not have access to dental care?: No Was dental information given to patient?: Patient has dentist HPI Acid reflux HPI Details 67-year-old male presents to the office for a sick visit. He is accompanied by his spouse, Patient is complaining of pain in both his hands, elbows shoulders and knees. The pain is present most of the day. 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 Affecting his quality of life. Meloxicam is not that effective. Would like a refill on his reflux medication. [facility] Medical History Anemia Esophageal stricture Paraesophageal hernia Depression ADD (attention deficit disorder) Iron deficiency anemia Asthma COVID-19 Surgical History History of hernia repair Hx of tonsillectomy Hx of eye surgery History of total hip arthroplasty Hx of colonoscopy Hx of esophagogastroduodenoscopy Family History Father COPD (chronic obstructive pulmonary disease) [facility] Alcohol intake: current Patient Tobacco Use Status: Never used Tobacco e-Cigarette/Vaping Use: Never Used Second Hand Smoke Exposure: No service: No Current occupational status: employed Cognitive needs: No Hearing needs: No Vision needs: No Questionnaire PHQ-9 Over the last 2 weeks, how often have you been bothered by any of the following problems? 1. Little interest or pleasure in doing things: more than half the days 2. Feeling down, depressed, or hopeless: more than half the days 3. Trouble falling or staying asleep, or sleeping too much: several days 4. Feeling tired or having little energy: nearly every day 5. Poor appetite or overeating: not at all 6. Feeling bad about yourself - or that you are a failure or have let yourself or your family down: not at all 7. Trouble concentrating on things, such as reading the newspaper or watching television: several days 8. Moving or speaking so slowly that other people could have noticed. Or the opposite - being so fidgety or restless that you have been moving around a lot more than usual: not at all 9. Thoughts that you would be better off or of hurting yourself in some way: not at all Total score: 9 Depression Screening Interpretation: Positive Depression Screening Follow-up: Existing condition and In treatment Depression Screening Done: Yes Source: Developed by Drs. Jerrod Hartmann, Rima Santillan, Yosvany Lee and colleagues, with an educational amanuel from [employer]. Thrive Questionnaire Date Thrive assessed: 04/05/23 I am a: Patient What is your living situation today?: I have a steady place to live Within the past 12 months, did the food you bought not last and you didn't have the money to get more?: Never true Within the past 12 months, did you worry whether your food would run out before you got money to buy more?: Never true Do you have trouble paying for medicines?: No Do you have trouble getting transportation to medical appointments?: No Do you have trouble paying your heating and electricity bill?: No Do you have trouble taking care of your child, family member or friend?: No Do you have trouble with day-to-day activities such as bathing, preparing meals, shopping, managing finances, etc.?: No Are you currently unemployed and looking for a job?: No Are you interested in more education?: No Currently or been in a relationship where the following occur: no concerns reported AUDIT C Alcohol Use Questionnaire (AUDIT-C) 1. How often do you have a drink containing alcohol?: Monthly or less Total Score: 1 SHARIF-7 AMB Questionnaire SHARIF-7 Date SHARIF - 7 assessed: 04/05/23 Feeling nervous, anxious, or on edge: 3 = Nearly every day Not being able to stop or control worryin = Several days Worrying too much about different things: 1 = Several days Trouble relaxin = Several days Being so restless that it is hard to sit still: 0 = Not at all Becoming easily annoyed or irritable: 2 = More than half the days Feeling afraid as if something awful might happen: 2 = More than half the days Total SHARIF-7 score (0-4 normal; 5-9 mild; 10-14 moderate; 15-21 severe): 10 Source: Developed by Drs. Jerrod Hartmann, Rima Santillan, Yosvany Lee and colleagues, with an educational amanuel from [employer]. Physical exam (Primary Care) Vital Signs: Last Vital Signs Pulse 74 04/05/23 14:02 BP 110/74 04/05/23 14:02 Pulse Ox 94 04/05/23 14:02 Oxygen Delivery Method Room Air 04/05/23 14:02 Care Plan Goal for BP management: Blood pressure is in range. BMI result Body Mass Index 28.6 Tobacco/Smoking Status: Tobacco use Status Tobacco use date assessed 04/05/23 04/05/23 14:12 Patient Tobacco Use Status Never used Tobacco 04/05/23 14:12 e-Cigarette/Vaping Use Never Used 04/05/23 14:12 PHQ-9: PHQ-9 Score PHQ-9: Total score 9 04/05/23 14:25 Depression Screening Interpretation: Positive Depression Screening Follow-up: Existing condition and In treatment Thrive Assessment: Date of Thrive Assessment Date Thrive assessed 04/05/23 04/05/23 14:12 Currently or been in a relationship where the following occur: no concerns reported Advance Care Planning discussion: Exists, not on file Date of discussion: 04/05/23 Const General: cooperative and healthy appearing Nutritional Appearance: well nourished Orientation/consciousness: patient oriented x3 Limitations: no limitations HENMT Head: Yes normal to inspection Eyes General: appearance normal, both eyes and all related structures Neck Neck: Yes normal visual inspection Chest Chest palpation & inspection: normal palpation of entire chest wall Resp Effort & Inspection: normal respiratory effort Neuro General: patient oriented x3 Assessment and Plan Assessment & Plan (1) Osteoarthritis: Code(s): M19.90 - Unspecified osteoarthritis, unspecified site Plan: Patient has osteoarthritis. A rheumatology appointment has been scheduled. Prednisone has been started at 5 mg once a day. Advised stretching exercises. (2) Depression: Code(s): F32.A - Depression, unspecified Plan: Continue the fluoxetine at the same dosage. Advised to continue counseling. Orders: Orders Basic Metabolic Panel 04/05/23 D64.9 - Anemia, unspecified, M79.641 - Pain in right hand Liver Panel 04/05/23 D64.9 - Anemia, unspecified, M79.641 - Pain in right hand Erythrocyte Sedimentation Rate 04/05/23 D64.9 - Anemia, unspecified, M79.641 - Pain in right hand Lipid Panel 04/05/23 D64.9 - Anemia, unspecified, M79.641 - Pain in right hand Thyroid Stimulating Hormone 04/05/23 D64.9 - Anemia, unspecified, M79.641 - Pain in right hand Lyme IgG/IgM w/reflex to WB 04/05/23 D64.9 - Anemia, unspecified, M79.641 - Pain in right hand Referrals Rheumatology Referral M19.90 - Unspecified osteoarthritis, unspecified site Medications: New prednisone 5 mg PO DAILY 30 tabs 0RF Refilled albuterol sulfate 90 mcg/actuation 1 puff inhalation Q4H 8.5 grams 1RF pantoprazole 40 mg PO DAILY 60 tabs 2RF K92.2 - Gastrointestinal hemorrhage, unspecified Coding Level of Care Code Est Pt Level 4 (16485) Diagnoses Osteoarthritis M19.90 Depression F32.A Additional Codes Vital Signs *Quality* - Advance Care Planning discussion: Exists, not on file ([id number])
[2023-04-05 14:02] VITALS: BP 110/74; PULSE 74; O2SAT 94; BMI 28.6
== END 2023-04-05 15:14 | disposition home or self-care (01) ==
PROVIDERS: PCP Internal Medicine; Visit Provider Internal Medicine
DX: M19.90 Unspecified osteoarthritis, unspecified site (principal); F32.A Depression, unspecified; Z00.00 Encounter for general adult medical examination without abnormal findings
CPT/HCPCS: 1123F; 99214

== ENCOUNTER 2023-04-11 13:17 | Outpatient (REF) | payer BC, SELFPAY ==
[2023-04-11 16:22] LABS: Alanine Aminotransferase 11 U/L (0-40); Albumin Level 3.8 g/dL (3.5-5.0); Alkaline Phosphatase 67 U/L (39-117); Anion Gap 10 (12-20); Aspartate Amino Transferase 12 U/L (5-37); Bilirubin Direct 0.1 mg/dL (0.0-0.5); Bilirubin Total 0.3 mg/dL (0.0-1.0); Blood Urea Nitrogen 18 mg/dL (9-16); Carbon Dioxide 28 mmol/L (22-29); Chloride 108 mmol/L (96-108); Cholesterol 159 mg/dL (<200); Estimated Glomerular Filt Rate > 60; Glucose Random 117 mg/dL (60-115); HDL Cholesterol 46 mg/dL (>40); LDL Cholesterol Calculated 94 mg/dL (<100); Potassium 3.5 mmol/L (3.3-5.1); Sodium 142 mmol/L (135-145); Total Protein 6.9 g/dL (6.5-8.0); Triglycerides 96 mg/dL (<150)
[2023-04-11 16:38] LABS: Thyroid Stimulating Hormone 1.31 uIU/mL (0.32-4.0)
[2023-04-11 16:42] LABS: Erythrocyte Sedimentation Rate 5 MM/HR (0-15)
[2023-04-13 05:29] LABS: Lyme Abs Screen <0.90 index
== END 2023-04-11 13:18 | disposition home or self-care (01) ==
LOC: HO.HMGCLDS 13:17
PROVIDERS: PCP Internal Medicine; Visit Provider Internal Medicine
DX: D64.9 Anemia, unspecified (principal); M79.641 Pain in right hand; E78.00 Pure hypercholesterolemia, unspecified
CPT/HCPCS: 36415; 80048; 80061; 80076; 84443; 85652; 86617; 86618

== ENCOUNTER 2023-06-26 14:58 | Outpatient (AMB) | payer BC, SELFPAY ==
[2023-06-26 15:13] VITALS: BP 130/84; PULSE 71; TEMP 36.1; O2SAT 97; BMI 28.9
--- NOTE | 2023-06-26 15:13 | MHC.OFFVIS ---
Intake Vital Signs 06/26/23 15:13 Height 5 ft 11 in Weight 207 lb 3.752 oz BMI 28.9 BP 130/84 Blood Pressure Location Lt brachial Position Sitting Pulse 71 Pulse Source Pulse Oximeter Temp 97 F Temp Source Skin Pulse Oximetry (%) 97 Oxygen Delivery Method Room Air Intake Visit Reasons: Unspecified osteoarthritis Intake Note: New patient presents today for consult. 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 Accompanied by: Spouse Allergies No Known Allergies Allergy (Verified 06/26/23 15:20) Medication List - Last Reconciled 06/26/23 by Carlos Doan MD albuterol sulfate 90 mcg/actuation 1 puff inhalation Q4H amlodipine 5 mg PO DAILY dextroamphetamine-amphetamine 15 mg (Adderall) 15 mg PO BID fluoxetine 40 mg (2 x 20 mg) PO DAILY fluticasone propionate 50 mcg/actuation (Allergy Relief (fluticasone)) 1 spray intranasal DAILY metoprolol tartrate (Lopressor) 50 mg PO DAILY pantoprazole 40 mg PO DAILY prednisone 5 mg PO DAILY HPI HPI Comments History of Present Illness Details This is a 67-year-old male who presents for evaluation of multiple joint pain. The condition started approximately 3 months ago, when he had abrupt onset of bilateral hand, wrists, finger pain, swelling and morning stiffness, symptoms were progressive and it started to involve his shoulders, he tried taking aspirin for arthritis and it was not helpful. He had intermittent triggering of his fingers. He was prescribed prednisone 5 mg daily for the last 2 months by his PCP with please 50% improvement. Currently the pain is centered in his hands and wrists. Fingers no longer locking up. He denies any fevers or weight loss. Denies any skin rashes. He is unaware of any family history of an autoimmune rheumatic disease. 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 [facility] Medical History Anemia Esophageal stricture Paraesophageal hernia Depression ADD (attention deficit disorder) Iron deficiency anemia Asthma COVID-19 Surgical History History of hernia repair Hx of tonsillectomy Hx of eye surgery History of total hip arthroplasty Hx of colonoscopy Hx of esophagogastroduodenoscopy Family History Father COPD (chronic obstructive pulmonary disease) Social History Housing: Condominium Alcohol intake: current Patient Tobacco Use Status: Never used Tobacco e-Cigarette/Vaping Use: Never Used Second Hand Smoke Exposure: No service: No Current occupational status: employed 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 Cognitive needs: No Hearing needs: No Vision needs: No Review of Systems Const Reports fatigue, Reports headache(s) and Reports weakness Eyes Reports blurry vision and Reports itchy eyes ENT Reports dizziness and Reports headache(s) Resp Reports wheezing GI Reports nausea Musc Reports arthralgias, Reports joint swelling, Reports limited range of motion and Reports stiffness Skin/Breast Denies rash Neuro Reports dizziness, Reports headache(s) and Reports weakness Psych Reports abnormal sleep pattern, Reports anxiety and Reports depression Endo Reports fatigue Aller/Immun Reports itchy eyes and Reports wheezing Physical Exam Vital Signs: Last Vital Signs Temp 97 F 06/26/23 15:13 Pulse 71 06/26/23 15:13 BP 130/84 06/26/23 15:13 Pulse Ox 97 06/26/23 15:13 Oxygen Delivery Method Room Air 06/26/23 15:13 BMI result Body Mass Index 28.9 Const General: cooperative, healthy appearing and comfortable Nutritional Appearance: overweight Orientation/consciousness: patient oriented x3 Limitations: no limitations HEENT Head: Yes normocephalic and Yes atraumatic Mouth: moist mucous membranes Resp Effort & Inspection: normal respiratory effort and able to speak in complete sentences Auscultation: clear to auscultation bilaterally Cardio Rate: regular rate Rhythm: regular rhythm Skin General skin exam: no rashes or lesions noted Neuro General: patient oriented x3 Extrem Other: Mild bilateral wrist swelling and pain with flexion and extension Mild tenderness both wrists Bilateral positive MCP squeeze test Few tender flexor tendons bilaterally Few tender PIP is bilaterally Bilateral 1st MCP joint tenderness Minimal tenderness of the IP is No pain with range of motion of elbows and shoulders bilaterally No knee pain with flexion and extension bilaterally No ankle swelling or tenderness bilaterally Negative MTP squeeze test Assessment & Plan Assessment & Plan (1) Inflammatory arthritis: Code(s): M19.90 - Unspecified osteoarthritis, unspecified site Plan: This is a 67-year-old male who presents for evaluation of abrupt onset of symmetrical joint pain, swelling and stiffness, symptoms significantly improved with prednisone. Clinical picture rather consistent with inflammatory arthritis. Will order comprehensive serology for underlying autoimmune rheumatic disease, check x-rays of involved joints Advised patient to take prednisone 2.5-5 mg once daily as needed for joint pain. Follow-up in 6 weeks Plan I spent 48 minutes reviewing patient's chart, evaluating patient, ordering diagnostic workup, counseling patient and documenting in the chart Orders: Orders Complete Blood Count Auto Diff Today M19.90 - Unspecified osteoarthritis, unspecified site C Reactive Protein Today M19.90 - Unspecified osteoarthritis, unspecified site Hepatitis A,B,C Profile Today Z11.59 - Encounter for screening for other viral diseases Immunofixation Pnl, Serum Today M19.90 - Unspecified osteoarthritis, unspecified site Rheumatoid Factor Today M19.90 - Unspecified osteoarthritis, unspecified site Cyclic Citrullinated Peptide Today M19.90 - Unspecified osteoarthritis, unspecified site XR hand wrist LT Today M06.9 - Rheumatoid arthritis, unspecified Comprehensive Met. Panel Today M19.90 - Unspecified osteoarthritis, unspecified site Erythrocyte Sedimentation Rate Today M19.90 - Unspecified osteoarthritis, unspecified site Protein Electrophoresis, Serum Today M19.90 - Unspecified osteoarthritis, unspecified site T Spot TB Today Z11.7 - Encounter for testing for latent tuberculosis infection Uric Acid Today M19.90 - Unspecified osteoarthritis, unspecified site CHRISTINA Reflex Titer and Pattern Today M19.90 - Unspecified osteoarthritis, unspecified site HLA B27 Today M45.9 - Ankylosing spondylitis of unspecified sites in spine Medications: New prednisone Take 1-2 tabs once daily as needed for joint pain 60 tabs 1RF Discontinued prednisone Discontinued Reason: Doctor's Order 5 mg PO DAILY 30 tabs 0RF Coding Level of Care Code New Pt Level 4 (78095) Diagnoses Inflammatory arthritis M19.
== END 2023-06-26 15:47 | disposition home or self-care (01) ==
PROVIDERS: PCP Internal Medicine; Visit Provider Student in an Organized Health Care Education/Training Program
DX: M19.90 Unspecified osteoarthritis, unspecified site (principal)
CPT/HCPCS: 99204

== ENCOUNTER → 2023-06-26 14:58 | Outpatient (BNVA) | payer BC, SELFPAY | PROVIDERS: PCP Internal Medicine; Visit Provider Student in an Organized Health Care Education/Training Program ==

== ENCOUNTER 2023-07-04 13:23 | Outpatient (REF) | payer BC, SELFPAY ==
--- NOTE | ~2023-07-04 | XR_ITS ---
EXAMINATION: XR HAND/WRIST, LEFT CLINICAL INFORMATION: Rheumatoid arthritis. COMPARISON: Radiographs dated 02/05/2023. TECHNIQUE: PA, lateral, and oblique views of the left hand and wrist. FINDINGS: Bony alignment and mineralization are normal. There is mild osteoarthritic change of the interphalangeal joint of the thumb, the second, third and fifth distal interphalangeal joints, the second and fifth proximal interphalangeal joints, the third and fourth metacarpophalangeal joints and of the first carpometacarpal joint. No fracture or dislocation is seen. There is no abnormal bone erosion. A small circumscribed cyst is seen within the third metacarpal head. The proximal and distal carpal rows are intact. No focal soft tissue swelling, gas or foreign body is seen. XR/XR hand wrist LT IMPRESSION: There is multi-focal mild osteoarthritic change of the left hand and wrist. No fracture or dislocation is seen. There is no abnormal bone erosion.
[2023-07-04 15:54] LABS: MANUAL DIFF FLAG NO
[2023-07-04 16:05] LABS: Basophils Percent Auto 0.4 % (0-2); Eosinophils Absolute Auto 0.2 X10*3/uL (0.0-0.4); Eosinophils Percent Auto 2.3 % (0-4); Hematocrit 41.1 % (42.0-52.0); Hemoglobin 13.8 g/dl (14.0-18.0); Imm Gran Abs Auto 0.03 X10*3/uL (0.00-0.03); Imm Gran Pct Auto 0.4 % (0.0-0.4); Lymphocytes Absolute Auto 1.5 X10*3/uL (1.2-4.9); Lymphocytes Percent Auto 20.2 % (20-40); Mean Corpuscular HGB Conc 33.6 g/dl (31.0-36.0); Mean Corpuscular Volume 83.4 fL (80.0-98.0); Mean Platelet Volume 10.2 fL (9.4-12.4); Monocytes Absolute Auto 0.5 X10*3/uL (0.1-1.2); Monocytes Percent Auto 7.3 % (2-11); Neutrophils Absolute Auto 5.1 x10*3/uL (2.0-8.3); Neutrophils Percent Auto 69.4 % (45-73); Platelet Count 300 X10*3/uL (160-400); Red Blood Count 4.93 X10*6/uL (4.60-5.80); Red Cell Distribution Width 12.8 % (11.0-16.0); White Blood Count 7.4 X10*3/uL (4.8-10.8)
[2023-07-04 16:21] LABS: Rheumatoid Factor < 13.0 IU/mL (<15.0)
[2023-07-04 16:25] LABS: Alanine Aminotransferase 12 U/L (0-40); Albumin Level 4.1 g/dL (3.5-5.0); Alkaline Phosphatase 78 U/L (39-117); Anion Gap 12 (12-20); Aspartate Amino Transferase 10 U/L (5-37); Bilirubin Total 0.5 mg/dL (0.0-1.0); Blood Urea Nitrogen 21 mg/dL (9-16); C Reactive Protein 0.45 mg/dL (< or = 0.50); Calcium 9.3 mg/dL (8.4-10.2); Carbon Dioxide 29 mmol/L (22-29); Chloride 105 mmol/L (96-108); Estimated Glomerular Filt Rate > 60; Glucose Random 120 mg/dL (60-115); Potassium 3.8 mmol/L (3.3-5.1); Sodium 142 mmol/L (135-145); Total Protein 7.3 g/dL (6.5-8.0); Uric Acid 5.2 mg/dL (3.4-7.0)
[2023-07-04 16:42] LABS: Erythrocyte Sedimentation Rate 7 MM/HR (0-15)
[2023-07-05 08:20] LABS: HBS Num1 0.42 mIU/mL (0-7.99); HBc Num1 0.18 S/CO (0.00-0.79); HBsAGNum1 0.44 S/CO (0.00-0.99); Hepatitis A Antibody IgM 0.16 Index (0-0.79); Hepatitis B Core Antibody Nonreactive (Nonreactive); Hepatitis B Surface Antigen Negative (Negative); ~HepC Num1 0.19 S/CO (0.00-0.79); ~Hepatitis A Antibody IgM Nonreactive (Nonreactive); ~Hepatitis B Surface Antibody NONREACTIVE (Nonreactive); ~Hepatitis C Antibody Nonreactive (Nonreactive)
[2023-07-05 14:38] LABS: Cyclic Citrullinated Peptide 18 UNITS
[2023-07-06 09:54] LABS: Prot Elec - Albumin 3.9 g/dL (3.8-4.8); Prot Elec - Alpha1 0.3 g/dL (0.2-0.3); Prot Elec - Alpha2 0.6 g/dL (0.5-0.9); Prot Elec - Beta 1 0.5 g/dL (0.4-0.6); Prot Elec - Beta 2 0.4 g/dL (0.2-0.5); Prot Elec - Gamma 1.2 g/dL (0.8-1.7); Prot Elec - Total Protein 6.9 g/dL (6.1-8.1)
[2023-07-06 15:08] LABS: IgA 176 mg/dL (70-320); IgG 1277 mg/dL (600-1540); IgM 73 mg/dL (50-300)
[2023-07-07 13:03] LABS: TS Negative Control Passed; TS Panel A 0; TS Panel B 0; TS Positive Control Passed; TSpotTB Negative (Negative)
[2023-07-08 10:04] LABS: Anti Nuclear Antibody Screen NEGATIVE (NEGATIVE)
[2023-07-09 16:08] LABS: HLA B27 Positive (Negative)
== END 2023-07-04 13:24 | disposition home or self-care (01) ==
LOC: HO.HMGCX 13:23
PROVIDERS: PCP Internal Medicine; Visit Provider Student in an Organized Health Care Education/Training Program
DX: Z11.59 Encounter for screening for other viral diseases (principal); Z11.7 Encounter for testing for latent tuberculosis infection; M19.90 Unspecified osteoarthritis, unspecified site; M06.9 Rheumatoid arthritis, unspecified; M54.9 Dorsalgia, unspecified; Z72.89 Other problems related to lifestyle
CPT/HCPCS: 36415; 73110; 73130; 80053; 82784; 84165; 84550; 85025; 85652; 86038; 86140; 86200; 86334; 86431; 86481; 86704; 86706; 86709; 86803; 86812; 87340

== ENCOUNTER 2023-08-21 15:40 | Outpatient (AMB) | payer BC, SELFPAY ==
[2023-08-21 15:45] VITALS: BP 134/82; PULSE 70; O2SAT 96; BMI 28.7
--- NOTE | 2023-08-21 15:45 | MHC.OFFVIS ---
Intake Vital Signs 08/21/23 15:45 Height 5 ft 11 in Weight 205 lb 7.533 oz BMI 28.7 BP 134/82 Blood Pressure Location Rt brachial Position Sitting Pulse 70 Pulse Source Pulse Oximeter Pulse Oximetry (%) 96 Oxygen Delivery Method Room Air Intake Visit Reasons: Unspecified osteoarthritis/LVM Intake Note: Patient last seen 06/26/23 presents today for follow up and test results. 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 Accompanied by: Self / Same As Patient Allergies No Known Allergies Allergy (Verified 08/21/23 15:49) Medication List - Last Reconciled 08/21/23 by Carlos Doan MD albuterol sulfate 90 mcg/actuation 1 puff inhalation Q4H amlodipine 5 mg PO DAILY dextroamphetamine-amphetamine 15 mg (Adderall) 15 mg PO BID fluoxetine 40 mg (2 x 20 mg) PO DAILY fluticasone propionate 50 mcg/actuation (Allergy Relief (fluticasone)) 1 spray intranasal DAILY metoprolol tartrate (Lopressor) 50 mg PO DAILY pantoprazole 40 mg PO DAILY prednisone Take 1-2 tabs once daily as needed for joint pain HPI HPI Comments History of Present Illness Details Patient returns for follow-up after completion of his diagnostic workup. States that he is doing better overall. Continues to have intermittent pain and swelling of his hands, more severe on the left. Morning stiffness lasting 30 minutes. He takes Tylenol Arthritis as needed, he uses prednisone 2.5 mg once daily once or twice a week. He feels that he is generally better overall Initial history: This is a 67-year-old male who presents for evaluation of multiple joint pain. The condition started approximately 3 months ago, when he had abrupt onset of bilateral hand, wrists, finger pain, swelling and morning stiffness, symptoms were progressive and it started to involve his shoulders, he tried taking aspirin for arthritis and it was not helpful. He had intermittent triggering of his fingers. He was prescribed prednisone 5 mg daily for the last 2 months by his PCP with please 50% improvement. Currently the pain is centered in his hands and wrists. Fingers no longer locking up. He denies any fevers or weight loss. Denies any skin rashes. He is unaware of any family history of an autoimmune rheumatic disease. 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 [facility] Medical History Anemia Esophageal stricture Paraesophageal hernia Depression ADD (attention deficit disorder) Iron deficiency anemia Asthma COVID-19 Surgical History History of hernia repair Hx of tonsillectomy Hx of eye surgery History of total hip arthroplasty Hx of colonoscopy Hx of esophagogastroduodenoscopy Family History Father COPD (chronic obstructive pulmonary disease) Social History 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 Cognitive needs: No Hearing needs: No Vision needs: No Review of Systems Musc Reports arthralgias, Reports joint swelling, Reports limited range of motion and Reports stiffness Psych Reports abnormal sleep pattern, Reports anxiety and Reports depression Physical Exam Vital Signs: Last Vital Signs Pulse 70 08/21/23 15:45 BP 134/82 08/21/23 15:45 Pulse Ox 96 08/21/23 15:45 Oxygen Delivery Method Room Air 08/21/23 15:45 BMI result Body Mass Index 28.7 Const General: cooperative, healthy appearing and comfortable Nutritional Appearance: overweight Orientation/consciousness: patient oriented x3 Limitations: no limitations HEENT Head: Yes normocephalic and Yes atraumatic Mouth: moist mucous membranes Resp Effort & Inspection: normal respiratory effort and able to speak in complete sentences Cardio Rate: regular rate Rhythm: regular rhythm Skin General skin exam: no rashes or lesions noted Neuro General: patient oriented x3 Extrem Other: Minimal bilateral wrist swelling and pain with flexion and extension Mild tenderness both wrists Negative MCP squeeze test bilaterally No flexor or extensor tender tenderness bilateral Few tender PIP is bilaterally Bilateral 1st MCP joint tenderness No pain with range of motion of elbows and shoulders bilaterally No knee pain with flexion and extension bilaterally No ankle swelling or tenderness bilaterally Negative MTP squeeze test Assessment & Plan Assessment & Plan (1) Seronegative rheumatoid arthritis: Comment: -ve RF -ve CCP HCQ 07/2023 Code(s): M06.00 - Rheumatoid arthritis without rheumatoid factor, unspecified site Plan: This is a 67-year-old male who presents for evaluation of abrupt onset of symmetrical joint pain, swelling and stiffness, symptoms significantly improved with prednisone.? Comprehensive serology is unremarkable, except for positive HLA B27 which is of no clinical significance. Clinical picture consistent with seronegative arthritis. Discussed risks and benefits of hydroxychloroquine.? Patient agreed to proceed.? Start hydroxychloroquine 200 mg Twice daily? Can use prednisone 2.5 mg once daily as needed for joint pain.? Continue with Tylenol Arthritis as needed Labs before next visit in 3 months? 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 Patient will make an appointment with his manager personal soon Plan I spent 25 minutes reviewing patient's chart, evaluating patient, ordering diagnostic workup, counseling patient and documenting in the chart Orders: Orders Comprehensive Met. Panel 3 Months M06.00 - Rheumatoid arthritis without rheumatoid factor, unspecified site Erythrocyte Sedimentation Rate 3 Months M06.00 - Rheumatoid arthritis without rheumatoid factor, unspecified site Complete Blood Count Auto Diff 3 Months M06.00 - Rheumatoid arthritis without rheumatoid factor, unspecified site C Reactive Protein 3 Months M06.00 - Rheumatoid arthritis without rheumatoid factor, unspecified site Medications: New hydroxychloroquine 200 mg PO BID 60 tabs 2RF Coding Level of Care Code Est Pt Level 4 (85112) Diagnoses Seronegative rheumatoid arthritis M06.00 Long-term use of hydroxychloroquine Z79.899
== END 2023-08-21 16:03 | disposition home or self-care (01) ==
PROVIDERS: PCP Internal Medicine; Visit Provider Student in an Organized Health Care Education/Training Program
DX: M06.00 Rheumatoid arthritis without rheumatoid factor, unspecified site (principal); Z79.899 Other long term (current) drug therapy
CPT/HCPCS: 99214

== ENCOUNTER → 2023-08-21 15:40 | Outpatient (BNVA) | payer BC, SELFPAY | PROVIDERS: PCP Internal Medicine; Visit Provider Student in an Organized Health Care Education/Training Program ==

== ENCOUNTER 2024-04-08 15:10 | Outpatient (AMB) | payer BC, SELFPAY ==
--- NOTE | 2024-04-08 15:18 | MHC.PC.OV ---
Vital Signs 04/08/24 15:20 Height 5 ft 11 in Weight 211 lb 6 oz BMI 29.5 BP 130/66 Blood Pressure Location Lt brachial Position Sitting Pulse 64 Pulse Source Pulse Oximeter Pulse Oximetry (%) 94 Oxygen Delivery Method Room Air Intake Visit Reasons: Med review Intake Note: Patient is here to follow up on Med review. Pt decline flu shot today. 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: Present Accompanied by: Spouse Allergies No Known Allergies Allergy (Verified 04/13/24 16:15) Medication List - Last Reconciled 04/13/24 by Darien Salazar MD albuterol sulfate 90 mcg/actuation 1 puff inhalation Q4H amlodipine 5 mg PO DAILY dextroamphetamine-amphetamine 15 mg (Adderall) 15 mg PO BID fluoxetine 40 mg (2 x 20 mg) PO DAILY fluticasone propionate 50 mcg/actuation (Allergy Relief (fluticasone)) 1 spray intranasal DAILY hydroxychloroquine 200 mg PO BID metoprolol tartrate (Lopressor) 50 mg PO DAILY pantoprazole 40 mg PO DAILY Tobacco use date assessed: 04/08/24 Fall risk assessment: No Falls in past year Last assessed Fall Risk: 04/08/24 Dental Screening Dental Screen Date: 04/08/24 Did you have a dental visit in the last 12 months?: Yes Did you have a dental problem in the last 6 months where you did not have access to dental care?: No Was dental information given to patient?: Patient has dentist HPI Med review HPI Details 68-year-old male presents to the office to discuss his chronic medical conditions. Patient is at baseline state of health. Able to function and do activities of daily living. Patient is seeing a psychiatrist who is taking care of his therapy and medications [facility] Medical History Endogenous depression Anemia Esophageal stricture Paraesophageal hernia Depression ADD (attention deficit disorder) Iron deficiency anemia Asthma COVID-19 Surgical History History of hernia repair Hx of tonsillectomy Hx of eye surgery History of total hip arthroplasty Hx of colonoscopy Hx of esophagogastroduodenoscopy Family History Father COPD (chronic obstructive pulmonary disease) Social History Housing: Condominium Alcohol intake: current Patient Tobacco Use Status: Never used Tobacco e-Cigarette/Vaping Use: Never Used Second Hand Smoke Exposure: No service: No Current occupational status: employed 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 1. Little interest or pleasure in doing things: several days 2. Feeling down, depressed, or hopeless: several days 3. Trouble falling or staying asleep, or sleeping too much: several days 4. Feeling tired or having little energy: nearly every day 5. Poor appetite or overeating: not at all 6. Feeling bad about yourself - or that you are a failure or have let yourself or your family down: not at all 7. Trouble concentrating on things, such as reading the newspaper or watching television: more than half the days 8. Moving or speaking so slowly that other people could have noticed. Or the opposite - being so fidgety or restless that you have been moving around a lot more than usual: not at all 9. Thoughts that you would be better off or of hurting yourself in some way: not at all Total score: 8 Depression Screening Interpretation: Positive Depression Screening Done: Yes Source: Developed by Drs. Jerrod Hartmann, Rima Santillan, Yosvany Lee and colleagues, with an educational amanuel from [employer]. Thrive Questionnaire Date Thrive assessed: 04/08/24 I am a: Patient What is your living situation today?: I have a steady place to live Within the past 12 months, did the food you bought not last and you didn't have the money to get more?: Never true Within the past 12 months, did you worry whether your food would run out before you got money to buy more?: Never true Do you have trouble paying for medicines?: No Do you have trouble getting transportation to medical appointments?: No Do you have trouble paying your heating and electricity bill?: No Do you have trouble taking care of your child, family member or friend?: No Do you have trouble with day-to-day activities such as bathing, preparing meals, shopping, managing finances, etc.?: No Are you currently unemployed and looking for a job?: No Are you interested in more education?: No Currently or been in a relationship where the following occur: No concerns reported THRIVE Score: 0 AUDIT C Alcohol Use Questionnaire (AUDIT-C) 1. How often do you have a drink containing alcohol?: Monthly or less 2. How many drinks containing alcohol do you have on a typical day when you are drinking?: 1 or 2 3. How often do you have six or more drinks on one occasion?: Never Total Score: 1 SHARIF-7 AMB Questionnaire SHARIF-7 Date SHARIF - 7 assessed: 04/08/24 Feeling nervous, anxious, or on edge: 2 = More than half the days Not being able to stop or control worryin = More than half the days Worrying too much about different things: 2 = More than half the days Trouble relaxin = More than half the days Being so restless that it is hard to sit still: 0 = Not at all Becoming easily annoyed or irritable: 2 = More than half the days Feeling afraid as if something awful might happen: 1 = Several days Total SHARIF-7 score (0-4 normal; 5-9 mild; 10-14 moderate; 15-21 severe): 11 Source: Developed by Drs. Jerrod Hartmann, Rima Santillan, Yosvany Lee and colleagues, with an educational amanuel from [employer]. Physical exam (Primary Care) Vital Signs: Last Vital Signs Pulse 64 04/08/24 15:20 BP 130/66 04/08/24 15:20 Pulse Ox 94 04/08/24 15:20 Oxygen Delivery Method Room Air 04/08/24 15:20 BMI result Body Mass Index 29.5 Tobacco/Smoking Status: Tobacco use Status Tobacco use date assessed 04/08/24 04/08/24 15:23 Patient Tobacco Use Status Never used Tobacco 04/08/24 15:23 e-Cigarette/Vaping Use Never Used 04/08/24 15:23 PHQ-9: PHQ-9 Score PHQ-9: Total score 8 04/08/24 15:59 Depression Screening Interpretation: Positive Thrive Assessment: Date of Thrive Assessment Date Thrive assessed 04/08/24 04/08/24 15:23 Currently or been in a relationship where the following occur: No concerns reported Const General: cooperative and healthy appearing Nutritional Appearance: well nourished Orientation/consciousness: patient oriented x3 Limitations: no limitations HENMT Head: Yes normal to inspection Eyes General: appearance normal, both eyes and all related structures Neck Neck: Yes normal visual inspection Chest Chest palpation & inspection: normal palpation of entire chest wall Resp Effort & Inspection: normal respiratory effort Neuro General: patient oriented x3 Results AMB Hemoglobin A1c AMB Hemoglobin A1c 5.9 % Last Edit by RAY Navarro on 04/08/24 15:29 Results Reviewed Results Reviewed: Laboratory Last Values Hgb A1c (Clinic) 5.9 % (4.0-6.0) 04/08/24 15:18 Coding Level of Care Code Est Pt Level 4 (03751) Complex EM visit Add On G2211 Diagnoses Dizziness R42 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 The same will be made. (2) Endogenous depression: Code(s): F33.2 - Major depressive disorder, recurrent severe without psychotic features Category: Medical Plan: Continue current medications. Orders: Orders AMB Hemoglobin A1c 04/08/24 Z13.9 - Encounter for screening, unspecified Referrals Neurology Referral R42 - Dizziness and giddiness Psychiatry Outpatient Consultation Service F33.2 - Major depressive disorder, recurrent severe without psychotic features Medications: Refilled metoprolol tartrate (Lopressor) 50 mg PO DAILY 90 tabs 0RF albuterol sulfate 90 mcg/actuation 1 puff inhalation Q4H 8.5 grams 1RF
[2024-04-08 15:20] VITALS: BP 130/66; PULSE 64; O2SAT 94; BMI 29.5
== END 2024-04-08 17:30 | disposition home or self-care (01) ==
PROVIDERS: PCP Internal Medicine; Visit Provider Internal Medicine
DX: R42 Dizziness and giddiness (principal); F33.2 Major depressive disorder, recurrent severe without psychotic features

== ENCOUNTER → 2024-04-08 15:10 | Outpatient (BNVA) | payer BC, SELFPAY | PROVIDERS: PCP Internal Medicine; Visit Provider Internal Medicine | DX: R42 Dizziness and giddiness (principal); F33.2 Major depressive disorder, recurrent severe without psychotic features; Z28.21 Immunization not carried out because of patient refusal | CPT/HCPCS: 83036; 96127 ==

== ENCOUNTER 2024-06-23 18:37 | Outpatient (REF) | payer BC, SELFPAY ==
--- NOTE | ~2024-06-23 | MR_ITS ---
EXAMINATION: MR BRAIN WITHOUT IV CONTRAST HISTORY: cerebral microvascular dizziness TECHNIQUE: Sagittal T1, and axial T1, FLAIR, T2, gradient echo, and diffusion weighted MR images of the brain were obtained. COMPARISON: None FINDINGS: There is diffuse prominence of the ventricular system and cortical sulci, consistent with atrophy. Devine/white differentiation is normal. There is no mass effect or midline shift. No intra or extra-axial fluid collections are identified. There are no foci of restricted diffusion. Normal vascular flow voids are noted in the basilar and carotid arteries. The visualized paranasal sinuses are clear. MR/MR head/brain wo con IMPRESSION: No acute intracranial abnormality. Electronically signed by: Jerrod Land MD 06/24/2024 07:13 [place] [facility] [place]
== END 2024-06-23 18:38 | disposition home or self-care (01) ==
LOC: HO.MRI 18:37
PROVIDERS: PCP Internal Medicine; Visit Provider Psychiatry & Neurology Neurology
DX: R42 Dizziness and giddiness (principal)
CPT/HCPCS: 70551

== ENCOUNTER → 2024-06-23 18:45 | Outpatient (BNV) | payer BC, SELFPAY | PROVIDERS: PCP Internal Medicine; Visit Provider Radiology Diagnostic Radiology | DX: R42 Dizziness and giddiness (principal) | CPT/HCPCS: 70551 ==

== ENCOUNTER → 2024-09-25 15:06 | Outpatient (AMB) | payer BC, SELFPAY ==
--- NOTE | 2024-09-25 15:19 | MHC.PC.OV ---
Vital Signs 09/25/24 15:20 Height 5 ft 11 in Weight 208 lb 4 oz BMI 29.0 BP 110/66 Blood Pressure Location Lt brachial Position Sitting Pulse 93 Pulse Source Pulse Oximeter Temp 97.7 F Temp Source Temporal Artery Scan Pulse Oximetry (%) 94 Oxygen Delivery Method Room Air Intake Visit Reasons: med follow up Intake Note: Patient is here to follow up on Med review. Clinical Documentation Clerk Required: No Frontend Engineer: Not Required per policy Accompanied by: Self / Same As Patient Allergies No Known Allergies Allergy (Verified 09/26/24 11:38) Medication List - Last Reconciled 09/26/24 by Darien Salazar MD albuterol sulfate 90 mcg/actuation 1 puff inhalation Q4H dextroamphetamine-amphetamine 15 mg (Adderall) 15 mg PO BID fluoxetine 40 mg (2 x 20 mg) PO DAILY fluticasone propionate 50 mcg/actuation (Allergy Relief (fluticasone)) 1 spray intranasal DAILY fluticasone propionate 110 mcg/actuation 1 puff inhalation BID pantoprazole 40 mg PO DAILY Tobacco use date assessed: 09/25/24 Fall risk assessment: No Falls in past year Last assessed Fall Risk: 09/25/24 Dental Screening Dental Screen Date: 09/25/24 Did you have a dental visit in the last 12 months?: Yes Did you have a dental problem in the last 6 months where you did not have access to dental care?: No Was dental information given to patient?: Patient has dentist [facility] Medical History (Updated 09/25/24 @ 16:07 by Darien Salazar MD) Dysphagia Endogenous depression Anemia Esophageal stricture Paraesophageal hernia Depression ADD (attention deficit disorder) Iron deficiency anemia Asthma COVID-19 Surgical History History of hernia repair Hx of tonsillectomy Hx of eye surgery History of total hip arthroplasty Hx of colonoscopy (~08/03/21) Hx of esophagogastroduodenoscopy Family History Father COPD (chronic obstructive pulmonary disease) Social History Housing: Condominium Alcohol intake: current Patient Tobacco Use Status: Never used Tobacco e-Cigarette/Vaping Use: Never Used Second Hand Smoke Exposure: No service: No Current occupational status: employed 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 1. Little interest or pleasure in doing things: not at all 2. Feeling down, depressed, or hopeless: several days 3. Trouble falling or staying asleep, or sleeping too much: several days 4. Feeling tired or having little energy: several days 5. Poor appetite or overeating: not at all 6. Feeling bad about yourself - or that you are a failure or have let yourself or your family down: not at all 7. Trouble concentrating on things, such as reading the newspaper or watching television: not at all 8. Moving or speaking so slowly that other people could have noticed. Or the opposite - being so fidgety or restless that you have been moving around a lot more than usual: not at all 9. Thoughts that you would be better off or of hurting yourself in some way: not at all Total score: 3 Depression Screening Interpretation: Negative Depression Screening Done: Yes Source: Developed by Drs. Jerrod Hartmann, Rima Santillan, Yosvany Lee and colleagues, with an educational amanuel from [employer]. Thrive Questionnaire Date Thrive assessed: 09/25/24 I am a: Patient What is your living situation today?: I have a steady place to live Within the past 12 months, did the food you bought not last and you didn't have the money to get more?: Never true Within the past 12 months, did you worry whether your food would run out before you got money to buy more?: Never true Do you have trouble paying for medicines?: No Do you have trouble getting transportation to medical appointments?: No Do you have trouble paying your heating and electricity bill?: No Do you have trouble taking care of your child, family member or friend?: No Do you have trouble with day-to-day activities such as bathing, preparing meals, shopping, managing finances, etc.?: No Are you currently unemployed and looking for a job?: No Are you interested in more education?: I choose not to answer this question Please select the resources that you would like help with: None Currently or been in a relationship where the following occur: No concerns reported THRIVE Score: 0 AUDIT C Alcohol Use Questionnaire (AUDIT-C) 1. How often do you have a drink containing alcohol?: Never Total Score: 0 SHARIF-7 AMB Questionnaire SHARIF-7 Date SHARIF - 7 assessed: 09/25/24 Feeling nervous, anxious, or on edge: 2 = More than half the days Not being able to stop or control worryin = More than half the days Worrying too much about different things: 2 = More than half the days Trouble relaxin = More than half the days Being so restless that it is hard to sit still: 0 = Not at all Becoming easily annoyed or irritable: 2 = More than half the days Feeling afraid as if something awful might happen: 2 = More than half the days Total SHARIF-7 score (0-4 normal; 5-9 mild; 10-14 moderate; 15-21 severe): 12 Source: Developed by Drs. Jerrod Hartmann, Rima Santillan, Yosvany Lee and colleagues, with an educational amanuel from [employer]. Physical exam (Primary Care) Vital Signs: Last Vital Signs Temp 97.7 F 09/25/24 15:20 Pulse 93 09/25/24 15:20 BP 110/66 09/25/24 15:20 Pulse Ox 94 09/25/24 15:20 Oxygen Delivery Method Room Air 09/25/24 15:20 Care Plan Goal for BP management: BP is in range. BMI result Body Mass Index 29.0 Tobacco/Smoking Status: Tobacco use Status Tobacco use date assessed 09/25/24 09/25/24 15:33 Patient Tobacco Use Status Never used Tobacco 09/25/24 15:33 e-Cigarette/Vaping Use Never Used 09/25/24 15:33 PHQ-9: PHQ-9 Score PHQ-9: Total score 3 09/25/24 15:33 Depression Screening Interpretation: Negative Thrive Assessment: Date of Thrive Assessment Date Thrive assessed 09/25/24 09/25/24 15:33 Currently or been in a relationship where the following occur: No concerns reported Coding Level of Care Code Est Pt Level 4 (52856) Complex EM visit Add On G2211 Diagnoses Dysphagia R13.10 Endogenous depression F33.2 Assessment & Plan Assessment & Plan (1) Dysphagia: Code(s): R13.10 - Dysphagia, unspecified Category: Medical Plan: Swallowing evaluation and SBFT has been requested. (2) Endogenous depression: Code(s): F33.2 - Major depressive disorder, recurrent severe without psychotic features Category: Medical Plan: Unable to see the psychiatrist. Repeat appt made. Advised him to discuss his request of crow with the new provider. Plan History of Present Illness The patient is a 68-year-old male presenting for a routine checkup alongside his complaints of dysphagia, chronic depression, and asthma management. He describes this swallowing impairment as intermittent but occurs more frequently with solid foods, prompting concern and discussion for further evaluation or interventions such as a swallow study or endoscopy. He manages asthma chronically; however, he desires an updated prescription to fluticasone for better symptom control. Moreover, his depression management with fluoxetine over the decades is under review due to its declining efficacy. Additionally, the patient refers to intermittent anemia, previously identified via diagnostic procedures examining gastric sources of bleeding. Despite past interventions, he wishes to continue monitoring through regular bloodwork due to concerns about the persistence of symptoms. The patient discusses challenges with medication side effects, specifically regarding the use of Adderall, acknowledging persistent use while mindful of side effects such as dopamine depletion. Furthermore, with impending intermediate, he anticipates changes in insurance, adding urgency to addressing potential medication and treatment modifications. Social History - The patient is preparing for intermediate at the end of this year or early next year. - Employment-related stress mentioned as a factor in overall health. - The patient?s partner highlighted concerns, prompting medical attention for swallowing issues. - The patient is currently managing medication adjustments in anticipation of intermediate and possible changes in insurance coverage. Review of Systems - Respiratory: Reports stable asthma. - Gastrointestinal: Reports dysphagia with specific solid foods (e.g., pork, rice). - Neurological/Psychiatric: Reports longstanding depression with an inquiry on medication efficacy; denies new psychiatric symptoms. - Musculoskeletal/Extremities: Denies current joint pain; previous issues with hands have resolved. Physical Exam General: Cooperative and healthy appearing Nutritional Appearance: Well nourished Orientation/consciousness: Patient oriented x3 Limitations: No limitations Head: Normal to inspection General: Appearance normal, both eyes and all related structures Neck: Normal visual inspection Chest: Normal palpation of entire chest wall Respiratory: Normal, using inhaler (fluticasone) ormal respiratory effort Neurology: Patient oriented x3, dealing with depression, considering change from Prozac to Cymbalta Results - Previous endoscopy indicated bleeding from a gastric source. - Previous anemia identified; specifics of further results were not detailed. Plan - Evaluate current swallowing difficulties with esophagram and potential repeat endoscopy. - Schedule psychiatric evaluation to review and adjust current antidepressant therapy as needed. - Change asthma medication to fluticasone for extended relief. - Conduct comprehensive blood testing to monitor anemia and any gastric bleeding contributors. - Manage Adderall dosage and monitor for side effects. Transition support strategies to adapt to possible changes in medication access due to retiring. Patient was informed and verbally consented to the use of an ambient scribe for clinic note documentation during this visit. Discussion Notes We discussed the comprehensive approach to the patient's dysphagia, focusing on the necessity for further diagnostic procedures such as esophagram and possibly repeating endoscopy, given previous gastric concerns. We also reviewed the psychiatric consultation needs due to a reported decrease in the effectiveness of current antidepressant therapy, considering Cymbalta as an alternative. The benefits of switching to a longer-acting inhaler, fluticasone, for asthma control were explained, emphasizing its ability to maintain respiratory comfort over extended periods. Hematological evaluations will continue to rule out further complications of anemia. We addressed the current use of Adderall; the patient was reminded of the effects and given guidance on adjusting the dose. The potential impacts of retiring on medication access were noted, and future monitoring strategies were advised. Follow-up with psychiatry was reaffirmed. Patient Instructions - Follow up with psychiatric evaluation for depression management. - Undergo esophagram and endoscopy as determined for swallowing issues. - Begin using fluticasone as prescribed for asthma. - Attend scheduled blood tests for anemia monitoring. - Continue adjusting Adderall dosage as discussed. - Plan next routine appointment in six months. - Report any immediate concerns or changes in symptoms before the next scheduled visit. Orders: Orders [place] barium swallow w SBFT 09/25/24 R13.10 - Dysphagia, unspecified Medications: New fluticasone propionate 110 mcg/actuation 1 puff inhalation BID 12 grams 1RF Refilled pantoprazole 40 mg PO DAILY 60 tabs 2RF K92.2 - Gastrointestinal hemorrhage, unspecified
[2024-09-25 15:20] VITALS: BP 110/66; PULSE 93; TEMP 36.5; O2SAT 94; BMI 29.0
== END ==
LOC: HO.HMCH 15:07
PROVIDERS: PCP Internal Medicine; Visit Provider Internal Medicine
DX: R13.10 Dysphagia, unspecified (principal); F33.2 Major depressive disorder, recurrent severe without psychotic features

== ENCOUNTER → 2024-09-25 15:06 | Outpatient (BNVA) | payer BC, SELFPAY | PROVIDERS: PCP Internal Medicine; Visit Provider Internal Medicine | DX: Z13.89 Encounter for screening for other disorder (principal) ==

== ENCOUNTER 2024-10-14 13:24 | Outpatient (REF) | payer BC, SELFPAY ==
--- OUTSIDE RECORDS SUMMARY | 2024-10-14 14:35 | XMS_ITS | Data Portability ---
Author Organization [facility] IN [facility] - IP Address [address] [place] [address] Care Team Providers Care Manager Cardiac Cath Name Role Phone DOMMYRIAMALEXANDRA AIKENNDY Primary Care Provider Assessment No assessment recorded. Plan of Treatment Reminders Order Date Submit Date Provider Last Modified By Organization Details Last Modified Time Details Appointments None record ed. Lab None record ed. Referral None record ed. Procedures None record ed. Surgeries None record ed. Imaging None record ed. Medication Orders None record ed. Patient TargetsNo targets recorded. Patient InstructionsNo instructions recorded. Reason for Referral None Reported. Results Created Date Observation Date Name Description Value Unit Range Abnormal Flag Note LastModifiedBy Organization Detail LastModifiedTime 04/12/20 16 04/12/2016 [place], raudel aslinas study No observ ation record ed. [email or web address] [facility] (Radiology) [facility] [place], [address], 04/14/2016 17:39:04 Result Notes None recorded. Problems Name Problem SNOMED Code Status Onset Date Resolution Date Notes Provider Name and Address Organization Details Recorded Time Anxiety 33203836 Active 016 reinaldo jorgensen [place] Arely [facility] 6 17:38:03 Depressive disorder 51361311 Active 016 LINA zambrano [facility] 6 17:38:08 Problem Notes None recorded. Procedures Surgical History None recorded. Imaging Results Imaging Date Name Status LastModified by Organiz ation Details LastModified Time 04/12/2016 [place], modified barium swallow study completed [email or web address] [facility] (Radiology) [address] [place], [address], 04/14/2016 17:39:04 Procedure Notes None recorded. Medical Equipment None Reported. Allergies No known drug allergies Medications Name Sig Start Date Stop Date Status Note LastModified by Organization Details LastModified Time Prozac 40 mg capsule Take 1 capsule every day by oral route. active Not Available Not Available No t Available dextroamphetam ine-amphetamin e 10 mg tablet active Not Available Not Availab le Not Available dextroamphetam ine-amphetamin e ER 20 mg 24hr capsule,extend release active Not Available Not Available Not Available pantoprazole 40 mg tablet,delayed release TAKE ONE TABLET BY MOUTH ONE TIME DAILY active Not Available Not Available No t Available omeprazole 20 mg capsule,delaye d release Take 1 capsule twice a day by oral route as directed for 30 days. active Not Available Not Available No t Available zolpidem 5 mg tablet active Not Available Not Available Not Available fluoxetine 20 mg capsule active Not Available Not Available N ot Available diazepam 5 mg tablet active Not Available Not Available Not Available escitalopram 20 mg tablet active Not Available Not Available Not Available Vitals Date Recorded Body height Body weight Body mass index (BMI) Heart rate Systolic blood pressure Diastolic blood pressure Provider Name and Address Organization Details Last Updated DateTime 6 180.34 cm 40800.8 4 g 28.5 kg/m2 66 /min 129 mm[Hg] 83 mm[Hg] reinaldo jordan [place] - [facility] [place] 6 17:37:31 Social History None recorded. Functional Status None recorded. Mental Status None recorded. Family History Nothing Reported Notes:no fm hx of htn, dm, o r heart disease Medical History Condition Response Hypertension N Past Encounters Encounter ID Performer Location Encounter Start Date Encounter Closed Date Diagnosis/Indication Diagnosis SNOMED-CT Code Diagnosis ICD10 Code Diagnosis Note [id number] Lily Torrez MD [facility] Office [address] [facility] [address] [place] [address] 02/08/2016 17:34:17 02/14/2016 12:34:03 Health Concerns Section Related Observation LastModified by Organization Detai ls LastModified Time None Recorded Concern Status LastModified by Organization Details LastModified Time None Recorded Advance Directives Directive None Recorded Payers Insurance Date Sequence Insurance Name Policy Number Policy Delvalle Covered Member ID Delvalle Member ID Guarantor Name 02/16/2017 1 [place]: [facility] [facility] [employer] [id number] Francois Yeung [id number] Francois Yeung
[2024-10-14 16:43] LABS: Hematocrit 41.1 % (42.0-52.0); Hemoglobin 13.7 g/dl (14.0-18.0); Mean Corpuscular HGB Conc 33.3 g/dl (31.0-36.0); Mean Corpuscular Hemoglobin 28.4 pg (27.0-33.0); Mean Corpuscular Volume 85.3 fL (80.0-98.0); Mean Platelet Volume 10.2 fL (9.4-12.4); Platelet Count 292 X10*3/uL (160-400); Red Blood Count 4.82 X10*6/uL (4.60-5.80); Red Cell Distribution Width 13.2 % (11.0-16.0); White Blood Count 6.5 X10*3/uL (4.8-10.8)
[2024-10-14 17:10] LABS: Alanine Aminotransferase 14 U/L (0-40); Albumin Level 3.8 g/dL (3.5-5.0); Alkaline Phosphatase 65 U/L (39-117); Anion Gap 10 (12-20); Aspartate Amino Transferase 17 U/L (5-37); Bilirubin Direct 0.2 mg/dL (0.0-0.5); Bilirubin Total 0.6 mg/dL (0.0-1.0); Blood Urea Nitrogen 20 mg/dL (9-16); Calcium 8.5 mg/dL (8.4-10.2); Carbon Dioxide 27 mmol/L (22-29); Chloride 105 mmol/L (96-108); Cholesterol 191 mg/dL (<200); Estimated Glomerular Filt Rate > 60; Glucose Random 97 mg/dL (60-115); HDL Cholesterol 46 mg/dL (>40); LDL Cholesterol Calculated 125 mg/dL (<100); Potassium 3.8 mmol/L (3.3-5.1); Sodium 138 mmol/L (135-145); Total Protein 6.9 g/dL (6.5-8.0); Triglycerides 100 mg/dL (<150)
[2024-10-14 17:14] LABS: Thyroid Stimulating Hormone 1.13 uIU/mL (0.32-4.0)
== END 2024-10-14 13:25 | disposition home or self-care (01) ==
LOC: HO.HMGCLDS 13:24
PROVIDERS: PCP Internal Medicine; Visit Provider Internal Medicine
DX: F32.A Depression, unspecified (principal); I10 Essential (primary) hypertension
CPT/HCPCS: 36415; 80048; 80061; 80076; 84443; 85027

== ENCOUNTER 2024-11-12 15:14 | Outpatient (REF) | payer BC, SELFPAY ==
[2024-11-12 17:00] LABS: Cholesterol 198 mg/dL (<200); HDL Cholesterol 47 mg/dL (>40); LDL Cholesterol Calculated 118 mg/dL (<100); Triglycerides 166 mg/dL (<150)
--- OUTSIDE RECORDS SUMMARY | 2024-11-12 17:33 | XMS_ITS | Data Portability ---
Author Organization [facility] IN [facility] - IP Address [address] [facility] [place] [address] Care Team Providers Care Survey Instrument Operator Name Role Phone MAGALI CHACKO Primary Care Provider Assessment No assessment recorded. [...] LastModifiedBy Organization Detail LastModifiedTime 04/12/20 16 04/12/2016 [place], rauedl [place] study No observ ation record ed. [email or web address] [facility] (Radiology) [facility] [place], [address], 04/14/2016 17:39:04 Result Notes None recorded. Problems Name Problem SNOMED Code Status Onset Date Resolution Date Notes Provider Name and Address Organization Details Recorded Time Anxiety 22322131 Active 016 reinaldo jorgensen [place] Arely [facility] 6 17:38:03 Depressive disorder 81047356 Active 016 LINA zambrano [facility] 6 17:38:08 Problem Notes None recorded. Medical Equipment None Reported. [...] Details Last Updated DateTime 6 180.34 cm 16670.8 4 g 28.5 kg/m2 66 /min 129 mm[Hg] 83 mm[Hg] reinaldo jordan [facility] [place] 6 17:37:31 Social History None recorded. Functional Status None recorded. Mental Status None recorded. Family History Nothing Reported Notes:no fm hx of htn, dm, o r heart disease Medical History Condition Response Hypertension N Past Encounters Encounter ID Performer Location Encounter Start Date Encounter Closed Date Diagnosis/Indication Diagnosis SNOMED-CT Code Diagnosis ICD10 Code Diagnosis Note [id number] Lily Torrez MD [facility] Office [address] [place] [id number] 02/08/2016 17:34:17 02/14/2016 12:34:03 Health Concerns Section Related Observation LastModified by Organization Detai ls LastModified Time None Recorded Concern Status LastModified by Organization Details LastModified Time None Recorded Advance Directives Directive None Recorded Payers Insurance Date Sequence Insurance Name Policy Number Policy Delvalle Covered Member ID Delvalle Member ID Guarantor Name 02/16/2017 1 [facility] [place] [id number] Francois Yeung [id number] Francois Yeung
== END 2024-11-12 15:15 | disposition home or self-care (01) ==
LOC: HO.HMGCLDS 15:14
PROVIDERS: PCP Internal Medicine; Visit Provider Internal Medicine
DX: E78.5 Hyperlipidemia, unspecified (principal)
CPT/HCPCS: 36415; 80061